=== PATIENT | male | born 1960 | race Caucasian/White ===

== ENCOUNTER 2018-12-16 08:40 | Emergency (ER) | payer MEDICAID ==
[~2018-12-16] VITALS: Ht 172.7 cm; Wt 86.2 kg
[~2018-12-16 08:40] MED LIST: ATEN50TA PO
[2018-12-16] MEDS ORDERED: cloNIDine HCL 0.1 MG TAB PO ONE (09:00)
[2018-12-16 09:48] VITALS: BP 191/95
== END 2018-12-16 10:51 | disposition home or self-care (01) ==
LOC: ER 08:40
DX: S39.012A Strain of muscle, fascia and tendon of lower back, initial encounter (principal); S46.912A Strain of unspecified muscle, fascia and tendon at shoulder and upper arm level, left arm, initial encounter; F17.210 Nicotine dependence, cigarettes, uncomplicated; Z79.899 Other long term (current) drug therapy; X50.0XXA Overexertion from strenuous movement or load, initial encounter; Y93.89 Activity, other specified; Y99.8 Other external cause status; Y92.89 Other specified places as the place of occurrence of the external cause
CPT/HCPCS: 72100; 73030

== ENCOUNTER 2019-10-03 20:06 | Emergency (ER) | payer MEDICAID ==
[~2019-10-03] VITALS: Ht 172.7 cm; Wt 86.2 kg
[2019-10-03 20:15] VITALS: BP 169/106
[2019-10-03] MEDS ORDERED: cloNIDine HCL 0.1 MG TAB ONE (20:44)
[2019-10-03] MEDS ORDERED: cloNIDine HCL 0.1 MG TAB PO ONE (20:45)
[2019-10-03 23:00] LABS: Basophils # (auto) 0.1 uL; Eosinophils # (auto) 0.4 uL; Eosinophils % (auto) 3.6 % (0.0-7.0); Hematocrit 47.9 % (41.0-53.0); Hemoglobin 16.9 g/dL (13.5-17.5); Lymphocytes % (auto) 28.7 % (10.0-50.0); Mean Corpuscular Hemoglobin 31.7 pg (28.0-32.0); Mean Corpuscular Hgb Conc. 35.3 g/dL (32.0-36.0); Mean Corpuscular Volume 89.7 fL (80.0-100.0); Monocytes # (auto) 0.8 uL; Monocytes % (auto) 7.4 % (0.0-12.0); Neutrophils # (auto) 6.1 uL; Neutrophils % (auto) 59.3 % (37.0-80.0); Nucleated Red Blood Cells % 0.1 %; Platelet Count (auto) 231 10^3/uL (140-450); Red Blood Cells 5.34 10^6/uL (4.5-5.90); White Blood Cell 10.3 10^3/uL (4.4-10.8)
[2019-10-03 23:13] LABS: INR 1.02 (0.9-1.15); Partial Thromboplastin Time 28.5 sec (23.64-32.05)
[2019-10-03 23:17] LABS: Alanine Aminotransferase 23 U/L (16-61); Albumin 3.7 g/dL (3.4-5.0); Anion Gap 7 (5-15); Aspartate Aminotransferase 16 U/L (15-37); BUN/Creatinine Ratio 12.7; Blood Urea Nitrogen 15 mg/dL (7-18); Calcium 8.7 mg/dL (8.5-10.1); Carbon Dioxide 26 mmol/L (21-32); Chloride 109 mmol/L (98-107); GFR African American 82 mL/min; GFR Non-African American 67 mL/min; Glucose 96 mg/dL (74-106); Potassium 4.6 mmol/L (3.5-5.1); Sodium 142 mmol/L (136-145)
[2019-10-03 23:22] LABS: Alkaline Phosphatase 85 U/L (45-117); Bilirubin, Total 0.5 mg/dL (0.2-1.0); Total Protein 7.4 g/dL (6.4-8.2)
[2019-10-04] MEDS ORDERED: ONDANSETRON ODT 4 MG TAB PO ONE (01:15)
[2019-10-04] MEDS ORDERED: MORPHINE SULFATE 4 MG/ML SYR/VIAL IM ONE (01:15)
== END 2019-10-04 02:33 | disposition home or self-care (01) ==
LOC: ER 20:08
DX: R09.1 Pleurisy (principal); R07.89 Other chest pain
CPT/HCPCS: 36415; 71045; 80053; 83880; 84484; 85025; 85610; 85730; 93005; 96372; 99284; J2270; Q0162

== ENCOUNTER 2020-10-09 04:49 | Emergency (ER) | payer MEDICAID ==
[~2020-10-09] VITALS: Ht 172.7 cm; Wt 74.4 kg
[2020-10-09 04:49] VITALS: BP 166/97
[2020-10-09 05:25] LABS: Urine Bacteria NONE SEEN /hpf (None Seen); Urine Blood Negative /uL (Negative); Urine Hyaline Cast FEW /lpf (0 - 2); Urine WBC 4 /hpf (0 - 3)
[2020-10-09 08:58] LABS: Basophils # (auto) 0.1 10 ^3/uL (0-0.2); Basophils % (auto) 1.3 % (0.0-2.0); Eosinophils # (auto) 0.3 10 ^3/uL (0-0.8); Eosinophils % (auto) 4.4 % (0.0-7.0); Hematocrit 47.7 % (41.0-53.0); Hemoglobin 16.5 g/dL (13.5-17.5); Lymphocytes # (auto) 2.3 10 ^3/uL (0.4-5.4); Lymphocytes % (auto) 31.1 % (10.0-50.0); Mean Corpuscular Hemoglobin 30.9 pg (28.0-32.0); Mean Corpuscular Hgb Conc. 34.6 g/dL (32.0-36.0); Mean Corpuscular Volume 89.2 fL (80.0-100.0); Monocytes # (auto) 0.5 10 ^3/uL (0-1.3); Neutrophils # (auto) 4.1 10 ^3/uL (1.6-8.6); Neutrophils % (auto) 56.2 % (37.0-80.0); Nucleated Red Blood Cells % 0.3 %; Platelet Count (auto) 218 10^3/uL (140-450); Red Blood Cells 5.35 10^6/uL (4.5-5.90); Red Cell Distribution Width 13.1 % (11.8-14.3); White Blood Cell 7.3 10^3/uL (4.4-10.8)
[2020-10-09 09:16] LABS: Albumin 3.8 g/dL (3.4-5.0); Anion Gap 4 (5-15); Blood Urea Nitrogen 14 mg/dL (7-18); Calcium 8.6 mg/dL (8.5-10.1); Carbon Dioxide 28 mmol/L (21-32); Chloride 108 mmol/L (98-107); Glucose 90 mg/dL (74-106); Magnesium 2.2 mg/dL (1.6-2.6); Potassium 4.1 mmol/L (3.5-5.1); Sodium 140 mmol/L (136-145)
[2020-10-09 09:17] LABS: BUN/Creatinine Ratio 15.4; GFR African American 110 mL/min; GFR Non-African American 91 mL/min
[2020-10-09 09:25] LABS: Alanine Aminotransferase 25 U/L (16-61); Alkaline Phosphatase 97 U/L (45-117); Aspartate Aminotransferase 20 U/L (15-37); Bilirubin, Total 0.5 mg/dL (0.2-1.0); Total Protein 7.2 g/dL (6.4-8.2)
== END 2020-10-09 14:27 | disposition home or self-care (01) ==
LOC: ER 04:49
DX: R07.89 Other chest pain (principal); K59.00 Constipation, unspecified; K21.9 Gastro-esophageal reflux disease without esophagitis; F17.210 Nicotine dependence, cigarettes, uncomplicated; I10 Essential (primary) hypertension; J44.9 Chronic obstructive pulmonary disease, unspecified
CPT/HCPCS: 36415; 71250; 74176; 80053; 81001; 83735; 83880; 84443; 84484; 85025; 85379; 93005

== ENCOUNTER 2021-11-13 12:35 | Emergency (ER) | payer MEDICAID ==
[~2021-11-13] VITALS: Ht 172.7 cm; Wt 88.5 kg
[2021-11-13 13:18] VITALS: BP 167/98
[2021-11-13] MEDS ORDERED: IBUP800T27 PO (13:46)
== END 2021-11-13 13:49 | disposition home or self-care (01) ==
LOC: ER 12:35
DX: S90.32XA Contusion of left foot, initial encounter (principal); J44.9 Chronic obstructive pulmonary disease, unspecified; I10 Essential (primary) hypertension; F17.210 Nicotine dependence, cigarettes, uncomplicated; W23.0XXA Caught, crushed, jammed, or pinched between moving objects, initial encounter; Y93.79 Activity, other specified sports and athletics; Y92.89 Other specified places as the place of occurrence of the external cause; Y99.8 Other external cause status
CPT/HCPCS: 73630

== ENCOUNTER 2022-10-19 19:23 | Emergency (ER) | payer MEDICAID ==
[~2022-10-19] VITALS: Ht 172.7 cm; Wt 86.4 kg
[~2022-10-19 19:23] MED LIST changes: +IBUP800T27 PO
[2022-10-19 19:30] VITALS: BP 144/97
[2022-10-19 19:58] LABS: Basophils # (auto) 0.1 10 ^3/uL (0-0.2); Eosinophils # (auto) 0.3 10 ^3/uL (0-0.8); Eosinophils % (auto) 2.9 % (0.0-7.0); Hematocrit 45.4 % (41.0-53.0); Hemoglobin 16.1 g/dL (13.5-17.5); Lymphocytes # (auto) 2.3 10 ^3/uL (0.4-5.4); Lymphocytes % (auto) 22.6 % (10.0-50.0); Mean Corpuscular Hemoglobin 31.4 pg (28.0-32.0); Mean Corpuscular Hgb Conc. 35.5 g/dL (32.0-36.0); Mean Corpuscular Volume 88.3 fL (80.0-100.0); Monocytes # (auto) 0.6 10 ^3/uL (0-1.3); Monocytes % (auto) 5.7 % (0.0-12.0); Neutrophils # (auto) 6.8 10 ^3/uL (1.6-8.6); Neutrophils % (auto) 67.8 % (37.0-80.0); Nucleated Red Blood Cells % 0.1 %; Red Blood Cells 5.14 10^6/uL (4.5-5.90)
[2022-10-19 20:15] LABS: Albumin 3.7 g/dL (3.4-5.0); Calcium 9.1 mg/dL (8.5-10.1); Magnesium 2.3 mg/dL (1.6-2.6)
[2022-10-19 20:17] LABS: BUN/Creatinine Ratio 13.3
[2022-10-19 20:20] LABS: Bilirubin, Total 0.4 mg/dL (0.2-1.0); Total Protein 6.6 g/dL (6.4-8.2)
[2022-10-19 20:22] LABS: INR 0.96 (0.9-1.15); Partial Thromboplastin Time 28.1 sec (24.6-33.4)
[2022-10-20] MEDS ORDERED: LEVO-28 PO (16:23)
[2022-10-20] MEDS ORDERED: PRED20TA2 PO (16:23)
== END 2022-10-20 03:06 | disposition left against medical advice (07) ==
LOC: ER 19:25
DX: R07.89 Other chest pain (principal); N17.9 Acute kidney failure, unspecified; J44.9 Chronic obstructive pulmonary disease, unspecified; I10 Essential (primary) hypertension; F17.210 Nicotine dependence, cigarettes, uncomplicated
CPT/HCPCS: 36415; 71045; 80053; 83735; 83880; 84484; 85025; 85610; 85730; 93005

== ENCOUNTER 2022-10-20 14:43 | Emergency (ER) | payer MEDICAID ==
[~2022-10-20] VITALS: Ht 172.7 cm; Wt 86.1 kg
[2022-10-20 14:59] VITALS: BP 161/104
[2022-10-20] MEDS ORDERED: ASPirin 325 MG TAB PO ONE (15:00)
[2022-10-20 15:15] LABS: Basophils # (auto) 0.1 10 ^3/uL (0-0.2); Eosinophils # (auto) 0.4 10 ^3/uL (0-0.8); Eosinophils % (auto) 3.1 % (0.0-7.0); Hemoglobin 16.5 g/dL (13.5-17.5); Lymphocytes # (auto) 2.4 10 ^3/uL (0.4-5.4); Lymphocytes % (auto) 18.9 % (10.0-50.0); Mean Corpuscular Hemoglobin 31.1 pg (28.0-32.0); Mean Corpuscular Hgb Conc. 35.1 g/dL (32.0-36.0); Mean Corpuscular Volume 88.6 fL (80.0-100.0); Monocytes # (auto) 0.7 10 ^3/uL (0-1.3); Monocytes % (auto) 5.8 % (0.0-12.0); Neutrophils % (auto) 71.2 % (37.0-80.0); Nucleated Red Blood Cells % 0.1 %; Red Cell Distribution Width 13.1 % (11.8-14.3); White Blood Cell 12.7 10^3/uL (4.4-10.8)
[2022-10-20 15:32] LABS: Albumin 3.6 g/dL (3.4-5.0); BUN/Creatinine Ratio 15.4; Calcium 8.6 mg/dL (8.5-10.1); Potassium 4.1 mmol/L (3.5-5.1)
[2022-10-20 15:34] LABS: Bilirubin, Total 0.4 mg/dL (0.2-1.0); Total Protein 6.6 g/dL (6.4-8.2)
[2022-10-20] MEDS ORDERED: PRED20TA2 PO (16:23)
[2022-10-20] MEDS ORDERED: LEVO-28 PO (16:23)
[2022-10-20] MEDS ORDERED: cloNIDine HCL 0.1 MG TAB PO ONE (16:30)
== END 2022-10-20 18:28 | disposition left against medical advice (07) ==
LOC: ER 14:43
DX: J20.9 Acute bronchitis, unspecified (principal); R07.89 Other chest pain; I10 Essential (primary) hypertension; J44.9 Chronic obstructive pulmonary disease, unspecified; F17.210 Nicotine dependence, cigarettes, uncomplicated
CPT/HCPCS: 36415; 71045; 80053; 84484; 85025; 85379; 93005

== ENCOUNTER 2022-12-04 19:21 | Inpatient (IN) | payer MEDICAID ==
[~2022-12-04] VITALS: Ht 172.7 cm; Wt 79.7 kg
[~2022-12-04 19:21] MED LIST changes: +LEVO-28 PO; +PRED20TA2 PO
[2022-12-04] MEDS ORDERED: ONDANSETRON HCL 4 MG/2 ML VIAL IV ONE (20:15)
[2022-12-04] MEDS ORDERED: HYDROmorphone HCL 2 MG/ML VL/or syr IV ONE (20:15)
[2022-12-04 20:50] LABS: Basophils # (auto) 0.1 10 ^3/uL (0-0.2); Basophils % (auto) 0.8 % (0.0-2.0); Eosinophils # (auto) 0.4 10 ^3/uL (0-0.8); Eosinophils % (auto) 3.5 % (0.0-7.0); Hematocrit 47.7 % (41.0-53.0); Hemoglobin 16.5 g/dL (13.5-17.5); Lymphocytes # (auto) 2.8 10 ^3/uL (0.4-5.4); Lymphocytes % (auto) 28.1 % (10.0-50.0); Mean Corpuscular Hemoglobin 30.5 pg (28.0-32.0); Mean Corpuscular Hgb Conc. 34.5 g/dL (32.0-36.0); Mean Corpuscular Volume 88.2 fL (80.0-100.0); Monocytes # (auto) 0.7 10 ^3/uL (0-1.3); Monocytes % (auto) 6.6 % (0.0-12.0); Neutrophils # (auto) 6.2 10 ^3/uL (1.6-8.6); Red Cell Distribution Width 12.9 % (11.8-14.3); White Blood Cell 10.1 10^3/uL (4.4-10.8)
[2022-12-04 21:04] LABS: Urine Bacteria FEW /hpf (None Seen); Urine Blood 3+ /uL (Negative); Urine Specific Gravity 1.023 (1.001-1.035); Urine WBC 58 /hpf (0 - 3)
[2022-12-04 21:06] LABS: Albumin 3.6 g/dL (3.4-5.0); BUN/Creatinine Ratio 16.5; Calcium 8.7 mg/dL (8.5-10.1); Potassium 4.2 mmol/L (3.5-5.1)
[2022-12-04 21:09] LABS: Bilirubin, Total 0.3 mg/dL (0.2-1.0)
[2022-12-04] MEDS ORDERED: IOHEXOL 300 MG/ML 100ML BOTTLE IJ ONE (22:18)
[2022-12-05] MEDS ORDERED: levoFLOXacin 250 MG TAB PO ONE (01:00)
[2022-12-05] MEDS ORDERED: CEFTRIAXONE SODIUM 2 GM in D5W 5% 50 ML IV ONE (03:30)
[2022-12-05] MEDS ORDERED: DOCUSATE SOD 100 MG CAP PO PRN (03:45)
[2022-12-05] MEDS ORDERED: ONDANSETRON HCL 4 MG/2 ML VIAL IV PRN (03:45)
[2022-12-05] MEDS ORDERED: ACETAMINOPHEN 325 MG TAB PO PRN (03:45)
[2022-12-05] MEDS ORDERED: MORPHINE SULFATE INJ 2 MG/ml SYRG IV PRN (04:45)
[2022-12-05] MEDS ORDERED: NITROGLYCERIN 0.4 MG SL TAB SL PRN (04:45)
[2022-12-05] MEDS ORDERED: cefTRIAXone 1GM/50ML D5W 50 ML IV ONE ×2 (04:58→14:15)
[2022-12-05 04:59] LABS: Basophils # (auto) 0.1 10 ^3/uL (0-0.2); Basophils % (auto) 0.9 % (0.0-2.0); Eosinophils # (auto) 0.3 10 ^3/uL (0-0.8); Eosinophils % (auto) 3.9 % (0.0-7.0); Hematocrit 45.4 % (41.0-53.0); Hemoglobin 15.7 g/dL (13.5-17.5); Lymphocytes # (auto) 2.5 10 ^3/uL (0.4-5.4); Lymphocytes % (auto) 27.9 % (10.0-50.0); Mean Corpuscular Hemoglobin 30.8 pg (28.0-32.0); Mean Corpuscular Hgb Conc. 34.6 g/dL (32.0-36.0); Monocytes # (auto) 0.7 10 ^3/uL (0-1.3); Monocytes % (auto) 7.8 % (0.0-12.0); Neutrophils # (auto) 5.3 10 ^3/uL (1.6-8.6); Neutrophils % (auto) 59.5 % (37.0-80.0); Nucleated Red Blood Cells % 0.1 %; White Blood Cell 8.8 10^3/uL (4.4-10.8)
[2022-12-05 05:18] LABS: Potassium 4.7 mmol/L (3.5-5.1)
[2022-12-05 05:21] LABS: Albumin 3.4 g/dL (3.4-5.0); Calcium 8.4 mg/dL (8.5-10.1)
[2022-12-05 05:24] LABS: Bilirubin, Total 0.3 mg/dL (0.2-1.0); Total Protein 6.7 g/dL (6.4-8.2)
[2022-12-05] MEDS: SODIUM CHLOR 0.9% PF (SALINE LOCK) 10ML VIAL/SYR IV SCH ×3 (05:40→22:00)
[2022-12-05] MEDS: HYDROcodone-ACET 5/325MG TAB PO PRN ×3 (06:59→13:31)
[2022-12-05] MEDS ORDERED: cefTRIAXone 1GM/50ML D5W 50 ML IV SCH (09:00)
[2022-12-05] MEDS ORDERED: HYDROmorphone HCL 2 MG/ML VL/or syr IV ONE ×2 (09:30)
[2022-12-05] MEDS ORDERED: levoFLOXacin 500MG 100 ML IV SCH ×2 (10:00)
[2022-12-05] MEDS: SODIUM CHLORIDE 0.9% 1,000 ML IV SCH (14:55)
[2022-12-05 15:10] VITALS: BP 138/87
[2022-12-05] MEDS ORDERED: ATOR20TA50 PO (15:40)
[2022-12-05] MEDS ORDERED: FUR20T PO (15:40)
[2022-12-05] MEDS ORDERED: TAMS0.4C36 PO (15:40)
[2022-12-05] MEDS ORDERED: OXYC7.5T88 PO (15:40)
[2022-12-05] MEDS ORDERED: PANT40T PO (15:40)
[2022-12-05] MEDS ORDERED: LOSA-69 PO (15:40)
[2022-12-05] MEDS: TAMSULOSIN HYDROCHLORIDE 0.4 MG CAP PO SCH ×2 (19:00→22:50)
[2022-12-05 19:20] VITALS: BP 160/95
[2022-12-05 22:00] VITALS: BP 157/88
[2022-12-06] MEDS: SODIUM CHLORIDE 0.9% 1,000 ML IV SCH ×2 (03:50→17:30)
[2022-12-06 05:00] VITALS: BP 162/82
[2022-12-06] MEDS: SODIUM CHLOR 0.9% PF (SALINE LOCK) 10ML VIAL/SYR IV SCH ×3 (06:00→22:00)
[2022-12-06 06:01] LABS: Basophils # (auto) 0.1 10 ^3/uL (0-0.2); Basophils % (auto) 0.8 % (0.0-2.0); Eosinophils # (auto) 0.3 10 ^3/uL (0-0.8); Eosinophils % (auto) 4.3 % (0.0-7.0); Hemoglobin 15.4 g/dL (13.5-17.5); Lymphocytes # (auto) 1.6 10 ^3/uL (0.4-5.4); Lymphocytes % (auto) 21.5 % (10.0-50.0); Mean Corpuscular Hemoglobin 30.6 pg (28.0-32.0); Mean Corpuscular Hgb Conc. 34.2 g/dL (32.0-36.0); Mean Corpuscular Volume 89.5 fL (80.0-100.0); Monocytes # (auto) 0.5 10 ^3/uL (0-1.3); Monocytes % (auto) 6.7 % (0.0-12.0); Neutrophils % (auto) 66.7 % (37.0-80.0); Red Blood Cells 5.02 10^6/uL (4.5-5.90); Red Cell Distribution Width 12.6 % (11.8-14.3); White Blood Cell 7.5 10^3/uL (4.4-10.8)
[2022-12-06 06:45] LABS: Albumin 3.4 g/dL (3.4-5.0); Calcium 8.9 mg/dL (8.5-10.1); Potassium 4.8 mmol/L (3.5-5.1)
[2022-12-06 06:50] LABS: Bilirubin, Total 0.4 mg/dL (0.2-1.0); Total Protein 6.5 g/dL (6.4-8.2)
[2022-12-06 09:00] VITALS: BP 121/82
[2022-12-06] MEDS: cefTRIAXone 1GM/50ML D5W 50 ML IV SCH (10:00)
[2022-12-06] MEDS: HYDROmorphone HCL 2 MG/ML VL/or syr IV PRN ×3 (11:19→20:15)
[2022-12-06] MEDS ORDERED: HYDROmorphone HCL 2 MG/ML VL/or syr IV ONE (12:15)
[2022-12-06] MEDS ORDERED: LIDOCAINE HCL 2% TOP JELLY 5ML TOP ONE (12:30)
[2022-12-06 13:00] VITALS: BP 149/95
[2022-12-06] MEDS ORDERED: TAMSULOSIN HYDROCHLORIDE 0.4 MG CAP PO ONE (14:00)
[2022-12-06 17:00] VITALS: BP 176/83
[2022-12-06] MEDS: PHENAZOPYRIDINE HCL 100 MG TAB PO SCH (18:00)
[2022-12-06] MEDS: hydrALAZINE HCL 20 MG/ML VL IV PRN (20:42)
[2022-12-06 22:00] VITALS: BP 163/85
[2022-12-07] MEDS: HYDROmorphone HCL 2 MG/ML VL/or syr IV PRN ×4 (03:25→20:22)
[2022-12-07 05:00] VITALS: BP 135/70
[2022-12-07] MEDS: SODIUM CHLOR 0.9% PF (SALINE LOCK) 10ML VIAL/SYR IV SCH ×3 (05:14→21:02)
[2022-12-07] MEDS: SODIUM CHLORIDE 0.9% 1,000 ML IV SCH (05:39)
[2022-12-07] MEDS: PHENAZOPYRIDINE HCL 100 MG TAB PO SCH ×3 (09:02→17:15)
[2022-12-07] MEDS: cefTRIAXone 1GM/50ML D5W 50 ML IV SCH (09:03)
[2022-12-07 09:17] VITALS: BP 162/97
[2022-12-07] MEDS: hydrALAZINE HCL 20 MG/ML VL IV PRN ×2 (10:14→16:24)
[2022-12-07 13:00] VITALS: BP 168/94
[2022-12-07] MEDS ORDERED: NICOTINE 21MG/24 HR TOPICAL PATCH TD ONE (15:45)
[2022-12-07 16:43] VITALS: BP 164/108
[2022-12-08] MEDS: HYDROmorphone HCL 2 MG/ML VL/or syr IV PRN ×5 (00:38→23:24)
[2022-12-08] MEDS: SODIUM CHLOR 0.9% PF (SALINE LOCK) 10ML VIAL/SYR IV SCH ×3 (05:05→21:14)
[2022-12-08 05:45] VITALS: BP 137/93
[2022-12-08] MEDS: hydrALAZINE HCL 20 MG/ML VL IV PRN (07:59)
[2022-12-08] MEDS: NICOTINE 21MG/24 HR TOPICAL PATCH TD SCH (08:52)
[2022-12-08] MEDS: PHENAZOPYRIDINE HCL 100 MG TAB PO SCH ×2 (08:53→12:00)
[2022-12-08] MEDS: cefTRIAXone 1GM/50ML D5W 50 ML IV SCH (08:53)
[2022-12-08 09:00] VITALS: BP 182/100
[2022-12-08 13:00] VITALS: BP 151/88
[2022-12-08] MEDS ORDERED: METOPROLOL TARTRATE 50 MG TAB PO ONE (13:00)
[2022-12-08 17:00] VITALS: BP 151/103
[2022-12-08] MEDS: oxyCODONE HCL 5MG TAB PO PRN (20:27)
[2022-12-08] MEDS: OXYBUTYNIN CHL 5 MG TAB PO SCH (21:15)
[2022-12-08] MEDS: METOPROLOL TARTRATE 50 MG TAB PO SCH (21:16)
[2022-12-08 22:00] VITALS: BP_SYST 144; BP_SYST 151; BP_DIAS 79; BP_DIAS 84
[2022-12-09 05:00] VITALS: BP 135/82
[2022-12-09] MEDS: SODIUM CHLOR 0.9% PF (SALINE LOCK) 10ML VIAL/SYR IV SCH ×3 (05:45→21:22)
[2022-12-09] MEDS: HYDROmorphone HCL 2 MG/ML VL/or syr IV PRN ×3 (05:46→20:23)
[2022-12-09 09:00] VITALS: BP 141/88
[2022-12-09] MEDS: cefTRIAXone 1GM/50ML D5W 50 ML IV SCH (10:03)
[2022-12-09] MEDS: NICOTINE 21MG/24 HR TOPICAL PATCH TD SCH (10:03)
[2022-12-09] MEDS: OXYBUTYNIN CHL 5 MG TAB PO SCH ×2 (10:03→21:33)
[2022-12-09] MEDS: METOPROLOL TARTRATE 50 MG TAB PO SCH ×2 (10:04→21:34)
[2022-12-09] MEDS: oxyCODONE HCL 5MG TAB PO PRN (10:05)
[2022-12-09 13:00] VITALS: BP 108/76
[2022-12-09 16:42] VITALS: BP 139/84
[2022-12-09 22:00] VITALS: BP 124/91
[2022-12-10 05:00] VITALS: BP 146/79
[2022-12-10] MEDS: SODIUM CHLOR 0.9% PF (SALINE LOCK) 10ML VIAL/SYR IV SCH ×3 (06:06→22:22)
[2022-12-10] MEDS: HYDROmorphone HCL 2 MG/ML VL/or syr IV PRN ×3 (06:51→23:29)
[2022-12-10 08:50] VITALS: BP 105/72
[2022-12-10 08:51] VITALS: BP 117/78
[2022-12-10] MEDS: OXYBUTYNIN CHL 5 MG TAB PO SCH ×2 (09:38→23:38)
[2022-12-10] MEDS: cefTRIAXone 1GM/50ML D5W 50 ML IV SCH (09:39)
[2022-12-10] MEDS: METOPROLOL TARTRATE 50 MG TAB PO SCH ×2 (09:39→22:43)
[2022-12-10] MEDS: NICOTINE 21MG/24 HR TOPICAL PATCH TD SCH (09:39)
[2022-12-10 11:23] LABS: INR 0.97 (0.9-1.15); Partial Thromboplastin Time 29.3 sec (24.6-33.4)
[2022-12-10] MEDS ORDERED: PROPOFOL 10 MG/ML 20 ML IV ONE (13:51)
[2022-12-10] MEDS ORDERED: ONDANSETRON HCL 4 MG/2 ML VIAL ONE (13:52)
[2022-12-10] MEDS ORDERED: GLYCOPYRROLATE 0.2 MG/ML 1ML VIAL ONE (13:52)
[2022-12-10] MEDS ORDERED: DexAMETHasone SOD PHOS 10MG/1ML VIAL INJ ONE (13:52)
[2022-12-10] MEDS ORDERED: LIDOCAINE 2% (LOCAL ANESTH.) PF 5ml SDV ONE (13:52)
[2022-12-10] MEDS ORDERED: ePHEDrine SULFATE 50 MG/ML AMP ONE (14:02)
[2022-12-10] MEDS ORDERED: KETAMINE HCL 10 ML ONE (14:06)
[2022-12-10] MEDS ORDERED: fentaNYL CITRATE 100 MCG/2 ML VL ONE ×2 (14:07→15:24)
[2022-12-10] MEDS ORDERED: HYDROmorphone HCL 2 MG/ML VL/or syr IV PRN (15:15)
[2022-12-10] MEDS ORDERED: ONDANSETRON HCL 4 MG/2 ML VIAL IV PRN (15:15)
[2022-12-10] MEDS ORDERED: NALOXONE HCL 0.4 MG/ML VIAL IV PRN (15:15)
[2022-12-10] MEDS ORDERED: ePHEDrine SULFATE 50 MG/ML AMP IV PRN (15:15)
[2022-12-10] MEDS ORDERED: fentaNYL CITRATE 100 MCG/2 ML VL IV PRN (15:15)
[2022-12-10] MEDS ORDERED: LABETALOL HCL 5 MG/ML 4ML SYRINGE IV PRN (15:15)
[2022-12-10] MEDS ORDERED: FLUMAZENIL 0.1 MG/ML INJ 10ML MDV IV PRN (15:15)
[2022-12-10] MEDS ORDERED: hydrALAZINE HCL 20 MG/ML VL IV PRN (15:15)
[2022-12-10] MEDS ORDERED: HYDROmorphone HCL 2 MG/ML VL/or syr IV ONE ×7 (15:15→19:15)
[2022-12-10] MEDS ORDERED: MIDAZOLAM HCL 2MG/2ML 2ml VIAL (1mg/ml) ONE (15:24)
[2022-12-10] MEDS: METHOCARBAMOL 500 MG TAB PO PRN ×2 (16:40→22:43)
[2022-12-10] MEDS: HYDROcodone-ACET 7.5/325MG TAB PO PRN (18:03)
[2022-12-10 22:00] VITALS: BP 118/76
[2022-12-11] MEDS: HYDROmorphone HCL 2 MG/ML VL/or syr IV PRN (04:37)
[2022-12-11 05:00] VITALS: BP 121/72
[2022-12-11] MEDS: SODIUM CHLOR 0.9% PF (SALINE LOCK) 10ML VIAL/SYR IV SCH ×2 (05:40→13:48)
[2022-12-11] MEDS: OXYBUTYNIN CHL 5 MG TAB PO SCH ×2 (05:56→12:00)
[2022-12-11 08:57] VITALS: BP 118/82
[2022-12-11] MEDS: cefTRIAXone 1GM/50ML D5W 50 ML IV SCH (09:27)
[2022-12-11] MEDS: METOPROLOL TARTRATE 50 MG TAB PO SCH (09:28)
[2022-12-11] MEDS: NICOTINE 21MG/24 HR TOPICAL PATCH TD SCH (09:43)
[2022-12-11] MEDS ORDERED: CIPR-173 PO (11:05)
[2022-12-11] MEDS: HYDROcodone-ACET 7.5/325MG TAB PO PRN (12:20)
[2022-12-11 12:55] VITALS: BP 118/82
[2022-12-11 13:00] VITALS: BP 122/65
== END 2022-12-11 16:14 | disposition home or self-care (01) | DRG 446 ==
LOC: ER 19:21 → OVERFLOW 12-05 04:46 → EAST 12-05 14:42 → WEST WING 12-05 18:59
PROVIDERS: ADMIT Nurse Practitioner Family; ATTEND Family Medicine
PROC: 0TBB8ZZ Excision of Bladder, Via Natural or Artificial Opening Endoscopic (ICD-10-PCS; principal; 2022-12-10 13:38)
DX: D49.4 Neoplasm of unspecified behavior of bladder (principal); F17.210 Nicotine dependence, cigarettes, uncomplicated; I10 Essential (primary) hypertension; J44.9 Chronic obstructive pulmonary disease, unspecified; Z82.49 Family history of ischemic heart disease and other diseases of the circulatory system; Z20.822 Contact with and (suspected) exposure to COVID-19; N39.0 Urinary tract infection, site not specified
CPT/HCPCS: 36415; 71045; 74177; 80053; 81001; 83605; 83690; 84154; 85025; 85610; 85730; 87040; 87426; 96365; 96366; 96367; 96375; 96376; G0378; J0696; J1100; J1956; J2001; J2250; J2405; J2704; J7060

== ENCOUNTER → 2023-02-18 | Outpatient (CLI) | payer MEDICAID ==
[~2023-02-18] MED LIST changes: +ATOR20TA50 PO; +CIPR-173 PO; +FUR20T PO; +LOSA-69 PO; +OXYC7.5T88 PO; +PANT40T PO; +TAMS0.4C36 PO
[2023-02-18 08:29] LABS: Cholesterol 155 mg/dL (< 200); HDL Cholesterol 58 mg/dL (40-59); LDL Cholesterol 83 mg/dL (< 100); Triglycerides 116 mg/dL (< 150)
== END | disposition home or self-care (01) ==
LOC: LAB 07:22
PROVIDERS: ATTEND Internal Medicine
DX: Z12.11 Encounter for screening for malignant neoplasm of colon (principal); I10 Essential (primary) hypertension
CPT/HCPCS: 36415; 80061

== ENCOUNTER → 2023-03-01 | Outpatient (CLI) | payer MEDICAID | END | disposition home or self-care (01) | LOC: LAB 12:50 | PROVIDERS: ATTEND Internal Medicine | DX: Z12.11 Encounter for screening for malignant neoplasm of colon (principal); I10 Essential (primary) hypertension | CPT/HCPCS: 82270 ==

== ENCOUNTER 2023-06-03 07:47 | Day surgery (SDC) | payer MEDICAID ==
[2023-06-01 12:41] LABS: Basophils # (auto) 0.1 10 ^3/uL (0-0.2); Basophils % (auto) 1.2 % (0.0-2.0); Eosinophils # (auto) 0.3 10 ^3/uL (0-0.8); Eosinophils % (auto) 3.5 % (0.0-7.0); Hematocrit 46.5 % (41.0-53.0); Lymphocytes # (auto) 2.1 10 ^3/uL (0.4-5.4); Lymphocytes % (auto) 23.9 % (10.0-50.0); Mean Corpuscular Hemoglobin 30.5 pg (28.0-32.0); Mean Corpuscular Hgb Conc. 34.4 g/dL (32.0-36.0); Mean Corpuscular Volume 88.7 fL (80.0-100.0); Monocytes # (auto) 0.6 10 ^3/uL (0-1.3); Monocytes % (auto) 6.8 % (0.0-12.0); Neutrophils # (auto) 5.8 10 ^3/uL (1.6-8.6); Neutrophils % (auto) 64.6 % (37.0-80.0); Nucleated Red Blood Cells % 0.1 %; Red Blood Cells 5.24 10^6/uL (4.5-5.90); Red Cell Distribution Width 13.4 % (11.8-14.3)
[2023-06-01 12:46] LABS: INR 1.01 (0.9-1.15); Partial Thromboplastin Time 28.3 SEC (24.5-34.5); Prothrombin Time 10.6 sec (9.3-11.8)
[2023-06-01 13:21] LABS: Urine Bacteria NONE SEEN /hpf (None Seen); Urine Blood Negative /uL (Negative); Urine Clarity Clear (Clear); Urine Color Yellow (Yellow); Urine Protein, UAD Negative (Negative); Urine Specific Gravity 1.022 (1.001-1.035); Urine Urobilinogen Normal (Negative); Urine WBC 1 /hpf (0 - 3); Urine pH 6.5 (5.0-8.0)
[2023-06-01 14:17] LABS: Potassium 4.4 mmol/L (3.5-5.1)
[2023-06-01 14:29] LABS: Albumin 3.6 g/dL (3.4-5.0); BUN/Creatinine Ratio 14.2 (10.0-20.0); Bilirubin, Total 0.3 mg/dL (0.2-1.0); Calcium 8.5 mg/dL (8.5-10.1); Total Protein 6.9 g/dL (6.4-8.2)
[~2023-06-03] VITALS: Ht 172.7 cm; Wt 79.4 kg
[~2023-06-03 07:47] MED LIST changes: +ASPI81CH59 PO; -ATEN50TA PO; -CIPR-173 PO; +FAMO20TA30 PO; -FUR20T PO; -IBUP800T27 PO; -LEVO-28 PO; -LOSA-69 PO; +LOSA50TA46 PO; -PANT40T PO; -PRED20TA2 PO; -TAMS0.4C36 PO
[2023-06-03] MEDS ORDERED: CIPROFLOXACIN 400MG/200ML 200 ML IV ONE (09:43)
[2023-06-03] MEDS ORDERED: DexAMETHasone SOD PHOS 10MG/1ML VIAL INJ ONE (09:47)
[2023-06-03] MEDS ORDERED: LIDOCAINE 2% (LOCAL ANESTH.) PF 5ml SDV ONE (09:47)
[2023-06-03] MEDS ORDERED: PROPOFOL 10 MG/ML 20 ML IV ONE (09:47)
[2023-06-03] MEDS ORDERED: GLYCOPYRROLATE 0.2 MG/ML 1ML VIAL ONE (09:47)
[2023-06-03] MEDS ORDERED: ONDANSETRON HCL 4 MG/2 ML VIAL ONE (09:47)
[2023-06-03] MEDS ORDERED: fentaNYL CITRATE 100 MCG/2 ML VL ONE (09:51)
[2023-06-03 10:34] VITALS: TEMP 97.7; O2SAT 100
[2023-06-03] MEDS: HYDROmorphone HCL 2 MG/ML VL/or syr IV PRN ×2 (11:28→11:39)
[2023-06-03] MEDS ORDERED: ONDANSETRON HCL 4 MG/2 ML VIAL IV PRN (11:30)
[2023-06-03] MEDS ORDERED: hydrALAZINE HCL 20 MG/ML VL IV PRN (11:30)
[2023-06-03] MEDS ORDERED: oxyCODONE HCL 5MG TAB PO PRN (11:30)
[2023-06-03] MEDS ORDERED: fentaNYL CITRATE 100 MCG/2 ML VL IV PRN (11:30)
[2023-06-03] MEDS ORDERED: ePHEDrine SULFATE 50 MG/ML AMP IV PRN (11:30)
[2023-06-03] MEDS ORDERED: FLUMAZENIL 0.1 MG/ML INJ 10ML MDV IV PRN (11:30)
[2023-06-03] MEDS ORDERED: LABETALOL HCL 5 MG/ML 4ML SYRINGE IV PRN (11:30)
[2023-06-03] MEDS ORDERED: NALOXONE HCL 0.4 MG/ML VIAL IV PRN (11:30)
[2023-06-03 11:55] VITALS: BP 172/95; PULSE 57; RESP 12; O2SAT 100
== END 2023-06-03 12:03 | disposition home or self-care (01) ==
LOC: SUR 07:47
PROVIDERS: ATTEND Urology
DX: D49.4 Neoplasm of unspecified behavior of bladder (principal)
CPT/HCPCS: 36415; 52224; 80053; 81001; 85025; 85610; 85730; 87086; J0744; J1100; J1170; J2001; J2405; J2704

== ENCOUNTER → 2023-06-22 | Emergency (ER) | payer MEDICAID ==
[~2023-06-22] VITALS: Ht 172.7 cm; Wt 81.6 kg
[2023-06-22 17:07] VITALS: BP 113/86; RESP 16; O2SAT 100
[2023-06-22 17:33] LABS: Basophils # (auto) 0.1 10 ^3/uL (0-0.2); Basophils % (auto) 0.9 % (0.0-2.0); Eosinophils # (auto) 0.2 10 ^3/uL (0-0.8); Eosinophils % (auto) 2.5 % (0.0-7.0); Hematocrit 45.1 % (41.0-53.0); Hemoglobin 15.7 g/dL (13.5-17.5); Lymphocytes # (auto) 0.6 10 ^3/uL (0.4-5.4); Lymphocytes % (auto) 9.8 % (10.0-50.0); Mean Corpuscular Hemoglobin 30.5 pg (28.0-32.0); Mean Corpuscular Hgb Conc. 34.8 g/dL (32.0-36.0); Mean Corpuscular Volume 87.6 fL (80.0-100.0); Monocytes # (auto) 0.7 10 ^3/uL (0-1.3); Monocytes % (auto) 10.2 % (0.0-12.0); Neutrophils # (auto) 4.9 10 ^3/uL (1.6-8.6); Neutrophils % (auto) 76.6 % (37.0-80.0); Red Blood Cells 5.15 10^6/uL (4.5-5.90); Red Cell Distribution Width 13.5 % (11.8-14.3); White Blood Cell 6.4 10^3/uL (4.4-10.8)
[2023-06-22 17:52] LABS: Alanine Aminotransferase 14 U/L (7-40); Albumin 4.1 g/dL (3.2-4.8); Alkaline Phosphatase 92 U/L (46-116); Anion Gap 6.7 (5-15); Aspartate Aminotransferase 11 U/L (13-40); BUN/Creatinine Ratio 13.7 (10.0-20.0); Bilirubin, Total 0.3 mg/dL (0.2-1.0); Blood Urea Nitrogen 17 mg/dL (9-23); Calcium 8.7 mg/dL (8.7-10.4); Carbon Dioxide 23.3 mmol/L (20-30); Chloride 109 mmol/L (98-107); Glucose 111 mg/dL (74-106); Potassium 3.7 mmol/L (3.5-5.1); Sodium 139 mmol/L (136-145); Total Protein 6.4 g/dL (5.7-8.2)
[2023-06-22 19:43] LABS: COVID19 ANTIGEN SOFIA FIA POSITIVE (NEGATIVE)
[2023-06-22 22:44] VITALS: PULSE 76
== END | disposition home or self-care (01) ==
LOC: ER 16:40
DX: U07.1 COVID-19 (principal); R07.89 Other chest pain; R50.9 Fever, unspecified; J44.9 Chronic obstructive pulmonary disease, unspecified; E78.5 Hyperlipidemia, unspecified; I10 Essential (primary) hypertension; F17.210 Nicotine dependence, cigarettes, uncomplicated; Z53.29 Procedure and treatment not carried out because of patient's decision for other reasons
CPT/HCPCS: 36415; 71045; 80053; 83880; 84484; 85025; 85379; 87426; 93005

== ENCOUNTER 2024-04-27 15:40 | Inpatient (IN) | payer MEDICAID ==
[~2024-04-27] VITALS: Ht 172.7 cm; Wt 83.7 kg
[~2024-04-27 15:40] MED LIST changes: +LOSA-534 PO; -LOSA50TA46 PO
[2024-04-27] MEDS: methylPREDNISolone SOD SUCC 125 MG/2 ML VL IV ONE (16:13)
[2024-04-27] MEDS: IPRATROPIUM BROM 0.5 MG/2.5ML INH SOL NEB ONE (16:15)
[2024-04-27] MEDS: ALBUTEROL SULF 2.5 MG/0.5ML(0.5%) NEB SOLN NEB ONE (16:15)
[2024-04-27 16:20] VITALS: PULSE 58; RESP 14; O2SAT 98
[2024-04-27] MEDS: ONDANSETRON HCL 4 MG/2 ML VIAL IV ONE ×2 (16:43→20:24)
[2024-04-27 16:45] LABS: Basophils # (auto) 0.1 10 ^3/uL (0-0.2); Basophils % (auto) 0.5 % (0.0-2.0); Eosinophils # (auto) 0.3 10 ^3/uL (0-0.8); Hematocrit 44.6 % (41.0-53.0); Hemoglobin 15.2 g/dL (13.5-17.5); Lymphocytes # (auto) 1.7 10 ^3/uL (0.4-5.4); Mean Corpuscular Hemoglobin 30.6 pg (28.0-32.0); Mean Corpuscular Hgb Conc. 34.2 g/dL (32.0-36.0); Mean Corpuscular Volume 89.4 fL (80.0-100.0); Monocytes # (auto) 1.1 10 ^3/uL (0-1.3); Monocytes % (auto) 8.4 % (0.0-12.0); Neutrophils % (auto) 76.1 % (37.0-80.0); Nucleated Red Blood Cells % 0.1 %; Red Blood Cells 4.98 10^6/uL (4.5-5.90); White Blood Cell 13.2 10^3/uL (4.4-10.8)
[2024-04-27] MEDS: MORPHINE SULFATE 4 MG/ML SYR/VIAL IV ONE ×2 (16:45→20:25)
[2024-04-27 17:00] LABS: Alanine Aminotransferase 51 U/L (7-40); Albumin 3.7 g/dL (3.2-4.8); Alkaline Phosphatase 302 U/L (46-116); Anion Gap 6 (5-15); Aspartate Aminotransferase 37 U/L (13-40); BUN/Creatinine Ratio 15.7 (10.0-20.0); Bilirubin, Total 0.5 mg/dL (0.2-1.0); Blood Urea Nitrogen 16 mg/dL (9-23); Calcium 9.4 mg/dL (8.5-10.1); Carbon Dioxide 26 mmol/L (20-30); Chloride 107 mmol/L (98-107); Glucose 125 mg/dL (74-106); Sodium 139 mmol/L (136-145)
[2024-04-27 17:01] LABS: Total Protein 5.7 g/dL (5.7-8.2)
[2024-04-27 20:00] VITALS: PULSE 66; RESP 12; O2SAT 97
[2024-04-27 20:20] LABS: Urine Bacteria None Seen /hpf (None Seen)
[2024-04-27] MEDS: FUROSEMIDE 40 MG/4 ML VIAL IV ONE (20:25)
[2024-04-27 20:31] LABS: Urine Blood Negative /uL (Negative); Urine Clarity Clear (Clear); Urine Color Light-Yellow (Yellow); Urine Protein, UAD Negative (Negative); Urine Specific Gravity 1.024 (1.001-1.035); Urine Urobilinogen Normal (Negative); Urine WBC 1 /hpf (0 - 3); Urine pH 5.5 (5.0-9.0)
[2024-04-27] MEDS: IOHEXOL 350 MG/ML 100ML IJ ONE (20:50)
[2024-04-27] MEDS ORDERED: DOCUSATE SOD 100 MG CAP PO PRN (21:00)
[2024-04-27] MEDS ORDERED: ONDANSETRON HCL 4 MG/2 ML VIAL IV PRN (21:00)
[2024-04-27] MEDS ORDERED: NITROGLYCERIN 0.4 MG SL TAB SL PRN (23:30)
[2024-04-27] MEDS ORDERED: MORPHINE SULFATE INJ 2 MG/ml SYRG IV PRN (23:30)
[2024-04-27] MEDS: FAMOTIDINE (10MG/ML) 2ML VL IV SCH (23:35)
[2024-04-27] MEDS: methylPREDNISolone SOD SUCC 40 MG/ML VL IV SCH (23:35)
[2024-04-27] MEDS: SODIUM CHLOR 0.9% PF (SALINE LOCK) 10ML VIAL/SYR IV SCH (23:35)
[2024-04-27] MEDS: ATORVASTATIN 20 MG TAB PO SCH (23:35)
[2024-04-28] VITALS (15 sets, daily range): BP systolic 138–157; BP diastolic 68–92; PULSE 54–77; RESP 18–20; TEMP 97.4–98.4; O2SAT 94–99
[2024-04-28] MEDS: HYDROcodone-ACET 5/325MG TAB PO PRN (02:16)
[2024-04-28 07:04] LABS: Alanine Aminotransferase 40 U/L (7-40); Albumin 3.8 g/dL (3.2-4.8); Alkaline Phosphatase 288 U/L (46-116); Anion Gap 8 (5-15); Aspartate Aminotransferase 24 U/L (13-40); BUN/Creatinine Ratio 9.2 (10.0-20.0); Bilirubin, Total 0.5 mg/dL (0.2-1.0); Blood Urea Nitrogen 11 mg/dL (9-23); Carbon Dioxide 25 mmol/L (20-30); Chloride 104 mmol/L (98-107); Glucose 163 mg/dL (74-106); Sodium 137 mmol/L (136-145); Total Protein 6.7 g/dL (5.7-8.2)
[2024-04-28] MEDS: FUROSEMIDE 40 MG/4 ML VIAL IV SCH (09:38)
[2024-04-28] MEDS: LOSARTAN POTASSIUM 50 MG TAB PO SCH (09:39)
[2024-04-28] MEDS: ASPirin 81 mg TAB PO SCH (09:39)
[2024-04-28 09:48] LABS: Hematocrit 43.2 % (41.0-53.0); Mean Corpuscular Hemoglobin 30.9 pg (28.0-32.0); Mean Corpuscular Hgb Conc. 34.6 g/dL (32.0-36.0); Mean Corpuscular Volume 89.3 fL (80.0-100.0); Red Blood Cells 4.84 10^6/uL (4.5-5.90); Red Cell Distribution Width 13.2 % (11.8-14.3); White Blood Cell 14.4 10^3/uL (4.4-10.8)
[2024-04-28 09:49] LABS: Band Neutrophils % (manual) 0; Basophils % (manual) 0 (0.0-2.0); Blast Cells 0; Eosinophils % (manual) 0 (0-7); Metamyelocytes % 0; Myelocytes % 0; Promyelocytes % 0; Reactive Lymphocytes 0
[2024-04-28 10:06] LABS: Lymphocytes % (manual) 8 (10.0-50.0); Monocytes % (manual) 4 (0-12); Platelet Estimate Adequate
[2024-04-28] MEDS ORDERED: VALS160T53 PO (12:29)
[2024-04-28] MEDS ORDERED: FURO20TA3 PO (12:29)
[2024-04-28] MEDS: hydrALAZINE HCL 20 MG/ML VL IV PRN (12:31)
[2024-04-28] MEDS: cefTRIAXone 1GM/50ML D5W 50 ML IV ONE (13:49)
[2024-04-28] MEDS: OXYCODONE W/ ACETAMINOPHEN 5/325MG TABLET PO PRN (18:43)
[2024-04-28] MEDS: ALBUTEROL SULF 2.5 MG/0.5ML(0.5%) NEB SOLN NEB PRN (19:56)
[2024-04-28] MEDS: IPRATROPIUM BROM 0.5 MG/2.5ML INH SOL NEB PRN (19:56)
[2024-04-28] MEDS: NICOTINE 14 MG/24HR TOPICAL PATCH TD SCH (22:23)
[2024-04-28] MEDS: ACETAMINOPHEN 325 MG TAB PO PRN (22:23)
[2024-04-29 05:00] VITALS: BP 190/103; PULSE 60; RESP 19; TEMP 98; O2SAT 98
[2024-04-29] MEDS: MORPHINE SULFATE INJ 2 MG/ml SYRG IV PRN (05:15)
[2024-04-29 07:49] VITALS: O2SAT 96
[2024-04-29 08:00] VITALS: BP 162/84; PULSE 59; PULSE 61; RESP 18; TEMP 97.8; O2SAT 98
[2024-04-29] MEDS: cefTRIAXone 1GM/50ML D5W 50 ML IV SCH (08:24)
[2024-04-29 10:00] VITALS: O2SAT 98
[2024-04-29] MEDS ORDERED: NICOTINE 14 MG/24HR TOPICAL PATCH TD SCH (10:00)
[2024-04-29] MEDS ORDERED: hydrALAZINE HCL 20 MG/ML VL IV PRN (14:45)
[2024-04-29] MEDS: AZITHROMYCIN 500MG/ 250ML 250 ML IV ONE (15:19)
[2024-04-29] MEDS ORDERED: ALBU108A5 IN (16:16)
[2024-04-29] MEDS ORDERED: FLUT55AE IN (16:16)
[2024-04-29] MEDS ORDERED: PRED10TA PO (16:16)
[2024-04-29] MEDS ORDERED: DOXY1CAP57 PO (16:16)
[2024-04-29 17:00] VITALS: BP 144/65; PULSE 69; RESP 16; TEMP 97.8; O2SAT 94
[2024-04-29] MEDS: methylPREDNISolone SOD SUCC 40 MG/ML VL IV ONE (17:02)
[2024-04-29 17:52] VITALS: BP 144/76; PULSE 69; RESP 16; TEMP 97.8; O2SAT 94
[2024-04-30] MEDS ORDERED: VALSARTAN 80 MG TAB PO SCH (10:00)
[2024-04-30] MEDS ORDERED: hydroCHLOROthiazide 25 MG TAB PO SCH (10:00)
[2024-04-30] MEDS ORDERED: AZITHROMYCIN 500MG/ 250ML 250 ML IV SCH (10:00)
[2024-05-01 14:17] LABS: Hepatitis C Antibody Negative (Negative)
[2024-05-02 03:37] LABS: Hepatitis B Surface Antigen Negative (Negative)
== END 2024-04-29 18:21 | disposition home or self-care (01) | DRG 194 ==
LOC: ER 15:40 → TELE-WESTW 23:30 → TELE 23:30 → TELE-WESTW 23:58
PROVIDERS: ADMIT Nurse Practitioner Family; ATTEND Family Medicine
DX: I11.0 Hypertensive heart disease with heart failure (principal); J44.1 Chronic obstructive pulmonary disease with (acute) exacerbation; I50.33 Acute on chronic diastolic (congestive) heart failure; D72.829 Elevated white blood cell count, unspecified; E78.5 Hyperlipidemia, unspecified; F17.210 Nicotine dependence, cigarettes, uncomplicated; J98.11 Atelectasis; Z85.51 Personal history of malignant neoplasm of bladder; Z82.49 Family history of ischemic heart disease and other diseases of the circulatory system; Z79.899 Other long term (current) drug therapy; R06.03 Acute respiratory distress
CPT/HCPCS: 36415; 71045; 71275; 80053; 81001; 83605; 83880; 84484; 85007; 85025; 85027; 85379; 86803; 87040; 87081; 87340; 93005; 93306; 93970; 94640; G0378; J2405; J3490

== ENCOUNTER → 2024-05-22 | Outpatient (CLI) | payer MEDICAID ==
[~2024-05-22] MED LIST changes: +ALBU108A5 IN; +DOXY1CAP57 PO; +FLUT55AE IN; +FURO20TA3 PO; +PRED10TA PO; +VALS160T53 PO
[2024-05-22 08:51] LABS: Urine Bacteria None Seen /hpf (None Seen)
[2024-05-22 09:06] LABS: Basophils # (auto) 0.1 10 ^3/uL (0-0.2); Hemoglobin 17.7 g/dL (13.5-17.5); Lymphocytes # (auto) 1.7 10 ^3/uL (0.4-5.4); Lymphocytes % (auto) 22.8 % (10.0-50.0); Mean Corpuscular Hemoglobin 31.3 pg (28.0-32.0); Monocytes # (auto) 0.5 10 ^3/uL (0-1.3); Neutrophils # (auto) 4.7 10 ^3/uL (1.6-8.6); Nucleated Red Blood Cells % 0.4 %; Red Blood Cells 5.65 10^6/uL (4.5-5.90); Red Cell Distribution Width 13.9 % (11.8-14.3)
[2024-05-22 09:07] LABS: Urine Blood Negative /uL (Negative); Urine Clarity Clear (Clear); Urine Color Light-Yellow (Yellow); Urine Hyaline Cast FEW /lpf (0 - 2); Urine Protein, UAD Negative (Negative); Urine Specific Gravity 1.021 (1.001-1.035); Urine Urobilinogen Normal (Negative); Urine WBC 6 /hpf (0 - 3); Urine pH 5.5 (5.0-9.0)
[2024-05-22 09:10] LABS: Eosinophils # (auto) 0.5 10 ^3/uL (0-0.8); Eosinophils % (auto) 6.3 % (0.0-7.0); Hematocrit 50.2 % (41.0-53.0); Mean Corpuscular Hgb Conc. 35.3 g/dL (32.0-36.0); Mean Corpuscular Volume 88.8 fL (80.0-100.0); Neutrophils % (auto) 62.9 % (37.0-80.0); White Blood Cell 7.4 10^3/uL (4.4-10.8)
[2024-05-22 09:41] LABS: Alanine Aminotransferase 19 U/L (7-40); Albumin 4.3 g/dL (3.2-4.8); Alkaline Phosphatase 109 U/L (46-116); Anion Gap 6 (5-15); Aspartate Aminotransferase 16 U/L (13-40); BUN/Creatinine Ratio 14.2 (10.0-20.0); Bilirubin, Total 0.7 mg/dL (0.2-1.0); Blood Urea Nitrogen 21 mg/dL (9-23); Calcium 9.9 mg/dL (8.7-10.4); Carbon Dioxide 27 mmol/L (20-30); Chloride 106 mmol/L (98-107); Cholesterol 223 mg/dL (< 200); Glucose 92 mg/dL (74-106); HDL Cholesterol 55 mg/dL (40-59); LDL Cholesterol 157 mg/dL (< 100); Potassium 4.2 mmol/L (3.5-5.1); Sodium 139 mmol/L (136-145); Triglycerides 157 mg/dL (< 150)
[2024-05-22 09:42] LABS: Total Protein 6.7 g/dL (5.7-8.2)
== END | disposition home or self-care (01) ==
LOC: LAB 08:34
PROVIDERS: ATTEND Internal Medicine
DX: D49.4 Neoplasm of unspecified behavior of bladder (principal); R31.9 Hematuria, unspecified; E78.5 Hyperlipidemia, unspecified
CPT/HCPCS: 36415; 80053; 80061; 81001; 82105; 83036; 84153; 85025

== ENCOUNTER 2024-05-30 09:57 | Inpatient (IN) | payer MEDICAID ==
[~2024-05-30] VITALS: Ht 172.7 cm; Wt 80.2 kg
[2024-05-30 10:20] VITALS: PULSE 73; RESP 12; O2SAT 93
[2024-05-30 10:47] LABS: Basophils # (auto) 0.1 10 ^3/uL (0-0.2); Basophils % (auto) 1.1 % (0.0-2.0); Eosinophils # (auto) 0.3 10 ^3/uL (0-0.8); Eosinophils % (auto) 3.1 % (0.0-7.0); Hematocrit 50.6 % (41.0-53.0); Hemoglobin 17.6 g/dL (13.5-17.5); Lymphocytes % (auto) 21.1 % (10.0-50.0); Mean Corpuscular Hemoglobin 31.3 pg (28.0-32.0); Mean Corpuscular Hgb Conc. 34.9 g/dL (32.0-36.0); Mean Corpuscular Volume 89.8 fL (80.0-100.0); Monocytes # (auto) 0.7 10 ^3/uL (0-1.3); Monocytes % (auto) 7.5 % (0.0-12.0); Neutrophils # (auto) 6.5 10 ^3/uL (1.6-8.6); Neutrophils % (auto) 67.2 % (37.0-80.0); Nucleated Red Blood Cells % 0.1 %; Red Blood Cells 5.63 10^6/uL (4.5-5.90); Red Cell Distribution Width 14.2 % (11.8-14.3); White Blood Cell 9.6 10^3/uL (4.4-10.8)
[2024-05-30] MEDS: SODIUM CHLORIDE 0.9% 1,000 ML IVB ONE (10:58)
[2024-05-30] MEDS: ONDANSETRON HCL 4 MG/2 ML VIAL IV ONE (11:01)
[2024-05-30 11:02] LABS: Chloride 103 mmol/L (98-107); Potassium 3.9 mmol/L (3.5-5.1); Sodium 138 mmol/L (136-145)
[2024-05-30] MEDS: MORPHINE SULFATE 4 MG/ML SYR/VIAL IV ONE ×2 (11:02→15:09)
[2024-05-30 11:03] LABS: Anion Gap 6 (5-15); Calcium 9.8 mg/dL (8.7-10.4); Carbon Dioxide 29 mmol/L (20-30)
[2024-05-30 11:08] LABS: BUN/Creatinine Ratio 14.4 (10.0-20.0); Blood Urea Nitrogen 26 mg/dL (9-23); Glucose 92 mg/dL (74-106)
[2024-05-30 11:10] LABS: Creatine Kinase IFCC < 15 U/L (46-171)
[2024-05-30] MEDS ORDERED: NITROGLYCERIN 0.4 MG SL TAB SL PRN (16:15)
[2024-05-30] MEDS ORDERED: IPRATROPIUM BROM 0.5 MG/2.5ML INH SOL NEB PRN (16:30)
[2024-05-30] MEDS ORDERED: ALBUTEROL SULF 2.5 MG/0.5ML(0.5%) NEB SOLN NEB PRN (16:30)
[2024-05-30 16:42] LABS: Urine Bacteria None Seen /hpf (None Seen)
[2024-05-30] MEDS: ALBUTEROL SULF 2.5 MG/0.5ML(0.5%) NEB SOLN NEB ONE (16:49)
[2024-05-30] MEDS: IPRATROPIUM BROM 0.5 MG/2.5ML INH SOL NEB ONE (16:49)
[2024-05-30 17:09] LABS: Urine Blood Negative /uL (Negative); Urine Clarity Clear (Clear); Urine Color Light-Yellow (Yellow); Urine Hyaline Cast FEW /lpf (0 - 2); Urine Protein, UAD Negative (Negative); Urine Specific Gravity 1.019 (1.001-1.035); Urine Urobilinogen Normal (Negative); Urine WBC 3 /hpf (0 - 3); Urine pH 5.5 (5.0-9.0)
[2024-05-30] MEDS: SODIUM CHLORIDE 0.9% 1,000 ML IV SCH (17:09)
[2024-05-30] MEDS: PIPERACILLIN-TAZOB 3.375GM 100 ML IV ONE (17:32)
[2024-05-30] MEDS: ENOXAPARIN SOD 40 MG/0.4 ML SYRINGE SC SCH (17:42)
[2024-05-30] MEDS: PIPERACILLIN-TAZOB 3.375GM 100 ML IV SCH (18:00)
[2024-05-30 18:35] VITALS: BP 123/77; PULSE 71; RESP 16; TEMP 97.5; O2SAT 97
[2024-05-30 20:00] VITALS: PULSE 73
[2024-05-30 21:00] VITALS: BP 124/87; PULSE 68; RESP 17; TEMP 97.3; O2SAT 94
[2024-05-30] MEDS: ONDANSETRON HCL 4 MG/2 ML VIAL IV PRN (21:09)
[2024-05-30 21:30] VITALS: BP 123/77; PULSE 71; RESP 16; TEMP 97.5; O2SAT 97
[2024-05-31] VITALS (10 sets, daily range): BP systolic 128–159; BP diastolic 81–93; PULSE 61–80; RESP 15–18; TEMP 97.5–98.7; O2SAT 94–98
[2024-05-31] MEDS: MORPHINE SULFATE INJ 2 MG/ml SYRG IV PRN (00:40)
[2024-05-31 06:45] LABS: Basophils # (auto) 0.1 10 ^3/uL (0-0.2); Eosinophils # (auto) 0.3 10 ^3/uL (0-0.8); Eosinophils % (auto) 4.7 % (0.0-7.0); Hematocrit 47.1 % (41.0-53.0); Hemoglobin 16.5 g/dL (13.5-17.5); Lymphocytes # (auto) 2.2 10 ^3/uL (0.4-5.4); Lymphocytes % (auto) 31.3 % (10.0-50.0); Mean Corpuscular Hemoglobin 31.3 pg (28.0-32.0); Mean Corpuscular Hgb Conc. 35.1 g/dL (32.0-36.0); Mean Corpuscular Volume 89.1 fL (80.0-100.0); Monocytes # (auto) 0.5 10 ^3/uL (0-1.3); Monocytes % (auto) 7.7 % (0.0-12.0); Neutrophils # (auto) 3.9 10 ^3/uL (1.6-8.6); Neutrophils % (auto) 55.3 % (37.0-80.0); Nucleated Red Blood Cells % 0.1 %; Red Blood Cells 5.28 10^6/uL (4.5-5.90); Red Cell Distribution Width 14.2 % (11.8-14.3)
[2024-05-31 06:47] LABS: Alanine Aminotransferase 13 U/L (7-40); Alkaline Phosphatase 80 U/L (46-116); Anion Gap 6 (5-15); BUN/Creatinine Ratio 15.3 (10.0-20.0); Blood Urea Nitrogen 26 mg/dL (9-23); Calcium 9.2 mg/dL (8.7-10.4); Carbon Dioxide 30 mmol/L (20-30); Chloride 105 mmol/L (98-107); Glucose 85 mg/dL (74-106); Potassium 3.9 mmol/L (3.5-5.1); Sodium 141 mmol/L (136-145)
[2024-05-31 06:49] LABS: Albumin 3.6 g/dL (3.2-4.8); Aspartate Aminotransferase 11 U/L (13-40); Bilirubin, Total 0.4 mg/dL (0.2-1.0); Total Protein 5.8 g/dL (5.7-8.2)
[2024-05-31] MEDS ORDERED: PATIENTS OWN MEDICATION (Aspirin (Aspirin Low Dose) 81 MG) PO SCH (08:00)
[2024-05-31] MEDS ORDERED: ATORVASTATIN 20 MG TAB PO SCH (10:00)
[2024-05-31] MEDS: LOSARTAN POTASSIUM 50 MG TAB PO SCH (10:55)
[2024-05-31] MEDS: ASPirin-EC 81 mg tab PO SCH (10:55)
[2024-05-31] MEDS: FAMOTIDINE 20 MG TAB PO SCH (10:55)
[2024-05-31] MEDS: NICOTINE 21MG/24 HR TOPICAL PATCH TD ONE (15:36)
[2024-05-31] MEDS: AZITHROMYCIN 500MG/ 250ML 250 ML IV STA (15:36)
[2024-05-31 16:45] LABS: Creatinine, Urine 96.2 mg/dL (30.0-125.0)
[2024-05-31 16:46] LABS: Rapid Influenza A Negative (Negative); Rapid Influenza B Negative (Negative)
[2024-05-31 18:13] LABS: COVID19 ANTIGEN SOFIA FIA NEGATIVE (NEGATIVE)
[2024-05-31] MEDS: DOCUSATE SOD 100 MG CAP PO PRN (20:14)
[2024-05-31] MEDS: ATORVASTATIN 20 MG TAB PO SCH (21:46)
[2024-06-01] VITALS (8 sets, daily range): BP systolic 96–149; BP diastolic 60–93; PULSE 61–97; RESP 14–18; TEMP 97.4–98.1; O2SAT 95–100
[2024-06-01 07:05] LABS: Basophils # (auto) 0.1 10 ^3/uL (0-0.2); Basophils % (auto) 0.9 % (0.0-2.0); Eosinophils # (auto) 0.4 10 ^3/uL (0-0.8); Eosinophils % (auto) 4.9 % (0.0-7.0); Hemoglobin 16.8 g/dL (13.5-17.5); Lymphocytes # (auto) 1.7 10 ^3/uL (0.4-5.4); Lymphocytes % (auto) 22.3 % (10.0-50.0); Mean Corpuscular Hemoglobin 31.2 pg (28.0-32.0); Mean Corpuscular Volume 89.1 fL (80.0-100.0); Monocytes # (auto) 0.5 10 ^3/uL (0-1.3); Monocytes % (auto) 7.1 % (0.0-12.0); Neutrophils # (auto) 4.9 10 ^3/uL (1.6-8.6); Neutrophils % (auto) 64.8 % (37.0-80.0); Nucleated Red Blood Cells % 0.1 %; Red Blood Cells 5.38 10^6/uL (4.5-5.90); Red Cell Distribution Width 13.7 % (11.8-14.3); White Blood Cell 7.5 10^3/uL (4.4-10.8)
[2024-06-01 07:47] LABS: Alanine Aminotransferase 11 U/L (7-40); Albumin 3.8 g/dL (3.2-4.8); Alkaline Phosphatase 79 U/L (46-116); Anion Gap 5 (5-15); BUN/Creatinine Ratio 16.2 (10.0-20.0); Blood Urea Nitrogen 22 mg/dL (9-23); Calcium 9.7 mg/dL (8.7-10.4); Carbon Dioxide 28 mmol/L (20-30); Chloride 108 mmol/L (98-107); Glucose 91 mg/dL (74-106); Potassium 4.7 mmol/L (3.5-5.1); Sodium 141 mmol/L (136-145)
[2024-06-01 07:48] LABS: Aspartate Aminotransferase 11 U/L (13-40); Bilirubin, Total 0.5 mg/dL (0.2-1.0); Total Protein 5.9 g/dL (5.7-8.2)
[2024-06-01] MEDS: ADENOSINE 67 MG in GIVE UN-DILUTED 0 ML IV ONE (08:46)
[2024-06-01] MEDS: NICOTINE 21MG/24 HR TOPICAL PATCH TD SCH (10:00)
[2024-06-01] MEDS: AZITHROMYCIN 500MG/ 250ML 250 ML IV SCH (10:36)
[2024-06-01] MEDS: LACTULOSE 20Gm/30ML SOLN PO STA (12:40)
[2024-06-01] MEDS ORDERED: PRED20TA2 PO (18:25)
[2024-06-01] MEDS ORDERED: AZITTAB PO (18:25)
== END 2024-06-01 17:55 | disposition home or self-care (01) | DRG 815 ==
LOC: ER 09:57 → TELE 16:28 → TELE-EAST 18:40
PROVIDERS: ADMIT Internal Medicine Pulmonary Disease; ATTEND Internal Medicine Pulmonary Disease
DX: T67.5XXA Heat exhaustion, unspecified, initial encounter (principal); N17.0 Acute kidney failure with tubular necrosis; J15.69 Pneumonia due to other Gram-negative bacteria; I11.0 Hypertensive heart disease with heart failure; J15.9 Unspecified bacterial pneumonia; I50.22 Chronic systolic (congestive) heart failure; K21.9 Gastro-esophageal reflux disease without esophagitis; J44.1 Chronic obstructive pulmonary disease with (acute) exacerbation; E78.5 Hyperlipidemia, unspecified; E86.0 Dehydration; F17.210 Nicotine dependence, cigarettes, uncomplicated; J44.0 Chronic obstructive pulmonary disease with (acute) lower respiratory infection; G89.29 Other chronic pain; K52.9 Noninfective gastroenteritis and colitis, unspecified; Z85.51 Personal history of malignant neoplasm of bladder; Z82.49 Family history of ischemic heart disease and other diseases of the circulatory system; X30.XXXA Exposure to excessive natural heat, initial encounter; Y93.89 Activity, other specified; Y92.89 Other specified places as the place of occurrence of the external cause; Y99.8 Other external cause status; R07.89 Other chest pain
CPT/HCPCS: 36415; 71045; 74176; 80048; 80053; 81001; 82024; 82533; 82550; 82570; 84300; 84443; 84484; 85025; 87081; 87426; 87804; 93017; 94640; 96365; 96375; G0378; J0153; J2405; J2543

== ENCOUNTER → 2024-08-21 | Outpatient (CLI) | payer MEDICAID ==
[~2024-08-21] MED LIST changes: +AZITTAB PO; -DOXY1CAP57 PO; -PRED10TA PO; +PRED20TA2 PO
[2024-08-21 09:38] LABS: Triglycerides 153 mg/dL (< 150)
[2024-08-21 09:39] LABS: LDL Cholesterol 154 mg/dL (< 100)
[2024-08-21 09:40] LABS: Cholesterol 237 mg/dL (< 200); HDL Cholesterol 68 mg/dL (40-59)
== END | disposition home or self-care (01) ==
LOC: LAB 08:43
PROVIDERS: ATTEND Internal Medicine
DX: J44.9 Chronic obstructive pulmonary disease, unspecified (principal); M54.50 Low back pain, unspecified; E78.5 Hyperlipidemia, unspecified; N52.9 Male erectile dysfunction, unspecified
CPT/HCPCS: 36415; 80061; 82306; 82607; 83036; 84403

== ENCOUNTER 2024-09-08 17:43 | Emergency (ER) | payer MEDICAID ==
[~2024-09-08] VITALS: Ht 172.7 cm; Wt 85.0 kg
[2024-09-08 17:44] VITALS: BP 121/71; RESP 18; TEMP 98; O2SAT 98
--- NOTE | 2024-09-08 18:13 | ED.PDOC ---
HPI Comments 63 y.o male with PMH of HTN, bladder cancer, COPD, and hyperlipidemia, presents to the ED for a chief complaint of substernal chest pain associated with SOB and nausea that started earlier today s/p cutting wood. Patient reports pain is constant, non radiating, has no alleviating or precipitating factors and rates it a 8/10 on the pain scale. Patient reports similar pain in the past but did not seek medical attention then. He denies any vomiting, leg swelling, fever, chills, abdominal pain, or back pain. Chief Complaint: Chest Pain Time Seen by MD: 17:45 Primary Care Provider: unknown Reviewed Notes: Nurses Notes, Medications, Allergies Allergies: Coded Allergies: NO KNOWN ALLERGIES (Unverified , 12/20/10) Home Meds Active Scripts Prednisone (Prednisone) 20 Mg Tab, 40 MG PO DAILY for 2 Days, #4 MG Prov:RICH GRAJEDA RESIDENT 06/01/24 Azithromycin (Zithromax Z-Kieran) 250 Mg Tab, 250 MG PO DAILY for 4 Days, #4 TAB Prov:RICH GRAJEDA RESIDENT 06/01/24 Fluticasone Propionate (Inhala (Armonair Digihaler) 55 Mcg/Act Aer, 55 MCG IN BID for 30 Days, #1 AER Prov:NII RUFFIN MD 04/29/24 Albuterol Sulfate (Albuterol Sulfate Hfa) 108 Mcg/Act Aer, 108 MCG IN Q4H PRN for 30 Days, #2 AER Prov:NII RUFFIN MD 04/29/24 Reported Medications Valsartan-Hydrochlorothiazide (Diovan Hct) 160 /12.5 Tab, 1 TAB PO DAILY, #30 TAB 5 Refills 04/28/24 Furosemide (Furosemide) 20 Mg Tab, 20 MG PO DAILY for 30 Days, MG 04/28/24 Aspirin (Aspirin Low Dose) 81 Mg Chw, 81 MG PO DAILY@BREAKFAST, TAB.CHEW 06/02/23 Famotidine (Acid Controller Maximum S) 20 Mg Tab, 20 MG PO DAILY, TAB 06/02/23 Atorvastatin Calcium (ATORVASTATIN CALCIUM) 20 Mg Tab, 1 TAB PO DAILY 12/05/22 Losartan Potassium (Losartan Potassium) 50 Mg Tab, 1-2 TAB PO DAILY 12/05/22 Oxycodone W/ Acetaminophen (Endocet) 1 Tab Tab, 10-325 MG PO Q8HP 12/05/22 Information Source: Patient Mode of Arrival: Ambulatory Severity: Moderate Timing: Hours Duration: Since onset Location: Substernal Radiation: No Radiation Quality: Sharp Onset: At Rest Cardiac Risk Factors: Hyperlipidemia, HTN PE Risk Factors: None History of: None Modifying Factors: Nothing Associated Signs and Symptoms: SOB, N/V (nausea only ) Past Medical History PAST MEDICAL HISTORY: Cancer, COPD, High Lipids, HTN Surgical History (Other): bladder s/p bladder cancer , back Family History Family History: Reviewed,noncontributory to illness Social History Smoker: Cigarettes, Greater Than 1 Pack/Day Alcohol: Occasionally Drugs: Denies Drug Use Lives In: Home Constitutional: denies: chills, diaphoresis, fatigue, fever, malaise, sweats, weakness, others EENTM: denies: blurred vision, double vision, ear bleeding, ear discharge, ear drainage, ear pain, ear ringing, eye pain, eye redness, hearing loss, mouth pain, mouth swelling, nasal discharge, nose bleeding, nose congestion, nose pain, photophobia, tearing, throat pain, throat swelling, voice changes, others Respiratory: reports: SOB at rest, shortness of breath, SOB with excertion; denies: cough, hemoptysis, orthopnea, stridor, wheezing, others Cardiovascular: reports: chest pain; denies: dizzy spells, diaphoresis, Dyspnea on exertion, edema, irregular heart beat, left arm pain, lightheadedness, p alpitations, PND, syncope, others Gastrointestinal: reports: nausea; denies: abdomen distended, abdominal pain, blood streaked bowels, constipated, diarrhea, dysphagia, difficulty swallowing, hematemesis, melena, poor appetite, poor fluid intake, rectal bleeding, rectal pain, vomiting, others Genitourinary: denies: burning, dysuria, flank pain, frequency, hematuria, incontinence, penile discharge, penile sore, pain, testicle pain, testicle swe lling, urgency, others Neurological: denies: dizziness, fainting, headache, left sided numbness, left sided weakness, numbness, paresthesia, pre-existing deficit, right sided numbness, right sided weakness, seizure, speech problems, tingling, tremors, weakness, others Musculoskeletal: denies: back pain, gout, joint pain, joint swelling, muscle pain, muscle stiffness, neck pain, others Integumetry: denies: bruises, change in color, change in hair/nails, dryness, laceration, lesions, lumps, rash, wounds, others Allergic/Immunocompromised: denies: Difficulty Healing, Frequent Infections, Hives, Itching, others Hematologic/Lymphatic: denies: anemia, blood clots, easy bleeding, easy bruising, swollen glands, others Endocrine: denies: excessive hunger, excessive sweating, excessive thirst, excessive urination, flushing, intolerance to cold, intolerance to heat, unexplained weight gain, unexplained weight loss, others Psychiatric: denies: anxiety, bipolar disorder, depression, hopeless, panic disorder, schizophrenia, sleepless, suicidal, others All Other Systems: Reviewed and Negative Physical Exam General Appearance: No Apparent Distress HEENT: Normal ENT Inspection, Pharynx Normal, TMs Normal Neck: Full Range of Motion, Non-Tender, Normal, Normal Inspection Respiratory: Chest Non-Tender, Lungs Clear, No Accessory Muscle Use, No Respiratory Distress, Normal Breath Sounds Cardiovascular: No Edema, No JVD, No Murmur, No Gallop, Normal Peripheral Pulses, Regular Rate/Rhythm Breast Exam: Deferred Gastrointestinal: No Organomegaly, Non Tender, No Pulsatile Mass, Normal Bowel Sounds, Soft Genitalia: Deferred Pelvic: Deferred Rectal: Deferred Extremities: No calf tenderness, Normal capillary refill, Normal inspection, Normal range of motion, Non-tender, No pedal edema Musculoskeletal : Apperance: Normal Neurologic: Alert, final canoe inspector II-XII nml as Tested, No Motor Deficits, Normal Affect, Normal Mood, No Sensory Deficits Cerebellar Function: Normal Reflexes: Normal Skin: Dry, Normal Color, Warm Lymphatic: No Adenopathy EKG EKG : Pulse Rate (adult): 72 Cardiac Rhythm: NSR Was a procedure done? Was a procedure done?: No CP Differential Dx Differential Diagnosis: N/A Differential Diagnosis: Angina, Costochondritis, Esophageal reflux/spasm, Gastritis, Myocardial Infarction, Pericarditis X-Ray, Labs, Meds, VS Vital Signs Date Time Temp Pulse Resp B/P (MAP) Pulse Ox O2 Delivery O2 Flow Rate FiO2 09/08/24 18:14 72 09/08/24 18:13 107 09/08/24 17:50 72 09/08/24 17:44 98.0 72 18 121/ (88) 72 09/08/24 17:44 98.0 72 18 121/ (88) 98 98.0 Lab Test 09/08/24 17:49 Range/Units White Blood Count 12.4 H 4.4-10.8 10^3/uL Red Blood Count 5.66 4.5-5.90 10^6/uL Hemoglobin 17.6 H 13.5-17.5 g/dL Hematocrit 50.1 41.0-53.0 % Mean Corpuscular Volume 88.6 80.0-100.0 fL Mean Corpuscular Hemoglobin 31.1 28.0-32.0 pg Mean Corpuscular Hemoglobin Concent 35.0 32.0-36.0 g/dL Red Cell Distribution Width 13.3 11.8-14.3 % Platelet Count 281 140-450 10^3/uL Mean Platelet Volume 7.5 6.9-10.8 fL Neutrophils (%) (Auto) 74.7 37.0-80.0 % Lymphocytes (%) (Auto) 17.7 10.0-50.0 % Monocytes (%) (Auto) 4.7 0.0-12.0 % Eosinophils (%) (Auto) 2.0 0.0-7.0 % Basophils (%) (Auto) 0.9 0.0-2.0 % Neutrophils # (Auto) 9.3 H 1.6-8.6 10 ^3/uL Lymphocytes # (Auto) 2.2 0.4-5.4 10 ^3/uL Monocytes # (Auto) 0.6 0-1.3 10 ^3/uL Eosinophils # (Auto) 0.2 0-0.8 10 ^3/uL Basophils # (Auto) 0.1 0-0.2 10 ^3/uL Nucleated Red Blood Cells 0.1 % Sodium Level 141 136-145 mmol/L Potassium Level 4.4 3.5-5.1 mmol/L Chloride Level 104 98-107 mmol/L Carbon Dioxide Level 28 20-31 mmol/L Anion Gap 9 5-15 Blood Urea Nitrogen 22 9-23 mg/dL Creatinine 1.58 H 0.700-1.30 mg/dL Glomerular Filtration Rate Calc 49 >90 mL/min BUN/Creatinine Ratio 13.9 10.0-20.0 Serum Glucose 81 74-106 mg/dL Calcium Level 10.1 8.7-10.4 mg/dL Total Bilirubin 0.5 0.2-1.0 mg/dL Aspartate Amino Transferase (AST) 24 13-40 U/L Alanine Aminotransferase (ALT) 17 7-40 U/L Alkaline Phosphatase 104 46-116 U/L Troponin I High Sensitivity 10 </=54 ng/L Total Protein 7.1 5.7-8.2 g/dL Albumin 4.5 3.2-4.8 g/dL The patient was resting comfortably The CBC shows an elevated white blood cell count of 12.4 The rest of the CBC is within normal limits The chemistry panel shows a creatinine of 1.58 The patient's troponin level is negative We did order a chest x-ray but it seems that the patient has eloped from the department's. Time of 1ST Reevaluation: 18:09 Reevaluation 1ST: Unchanged Patient Education/Counseling: Diagnosis, Treatment, Prognosis Family Education/Counseling: No Family Present Departure 1 Departure Time of Disposition: 20:17 Impression: Primary Impression: Acute chest pain Disposition: 07 LEFT AWOL/ELOPED Condition: Fair Critical Care Note Critical Care Time?: No Stability Stability form required: No Heart Score Heart Score: Heart Score Response (Comments) Value History Slightly Suspicious 0 EKG Normal 0 Age 45-64 1 Risk Factors 1 or 2 risk factors 1 Troponin Normal limit 0 Total 2 I personally scribed for LEROY MARCOS MD ([email or web address]) on 09/08/24 at 18:13. Electronically submitted by Sagrario Rooney ([place]). I personally scribed for LEROY MARCOS MD ([email or web address]) on 09/08/24 at 18:13. Electronically submitted by Sagrario Rooney ([employer]). I personally scribed for LEROY MARCOS MD ([email or web address]) on 09/08/24 at 18:14. Electronically submitted by Sagrario Rooney ([employer]). LEROY MARCOS MD Sep 08, 2024 18:13
[2024-09-08 18:14] VITALS: PULSE 72
[2024-09-08 18:14] LABS: Basophils # (auto) 0.1 10 ^3/uL (0-0.2); Basophils % (auto) 0.9 % (0.0-2.0); Eosinophils # (auto) 0.2 10 ^3/uL (0-0.8); Hematocrit 50.1 % (41.0-53.0); Hemoglobin 17.6 g/dL (13.5-17.5); Lymphocytes # (auto) 2.2 10 ^3/uL (0.4-5.4); Lymphocytes % (auto) 17.7 % (10.0-50.0); Mean Corpuscular Hemoglobin 31.1 pg (28.0-32.0); Mean Corpuscular Volume 88.6 fL (80.0-100.0); Monocytes # (auto) 0.6 10 ^3/uL (0-1.3); Monocytes % (auto) 4.7 % (0.0-12.0); Neutrophils # (auto) 9.3 10 ^3/uL (1.6-8.6); Neutrophils % (auto) 74.7 % (37.0-80.0); Nucleated Red Blood Cells % 0.1 %; Platelet Count (auto) 281 10^3/uL (140-450); Red Blood Cells 5.66 10^6/uL (4.5-5.90); Red Cell Distribution Width 13.3 % (11.8-14.3); White Blood Cell 12.4 10^3/uL (4.4-10.8)
[2024-09-08 18:25] LABS: Alanine Aminotransferase 17 U/L (7-40); Alkaline Phosphatase 104 U/L (46-116); Anion Gap 9 (5-15); Aspartate Aminotransferase 24 U/L (13-40); BUN/Creatinine Ratio 13.9 (10.0-20.0); Blood Urea Nitrogen 22 mg/dL (9-23); Calcium 10.1 mg/dL (8.7-10.4); Carbon Dioxide 28 mmol/L (20-31); Chloride 104 mmol/L (98-107); Glucose 81 mg/dL (74-106); Potassium 4.4 mmol/L (3.5-5.1); Sodium 141 mmol/L (136-145)
[2024-09-08 18:26] LABS: Albumin 4.5 g/dL (3.2-4.8); Bilirubin, Total 0.5 mg/dL (0.2-1.0); Total Protein 7.1 g/dL (5.7-8.2)
--- NOTE | 2024-09-09 07:01 | ECG ---
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
== END 2024-09-08 20:16 | disposition left against medical advice (07) ==
LOC: ER 17:43
DX: R07.89 Other chest pain (principal); J44.9 Chronic obstructive pulmonary disease, unspecified; I10 Essential (primary) hypertension; E78.5 Hyperlipidemia, unspecified; F17.210 Nicotine dependence, cigarettes, uncomplicated; D72.829 Elevated white blood cell count, unspecified; Z79.52 Long term (current) use of systemic steroids; Z79.82 Long term (current) use of aspirin; Z79.899 Other long term (current) drug therapy; Z85.51 Personal history of malignant neoplasm of bladder
CPT/HCPCS: 36415; 80053; 84484; 85025; 93005

== ENCOUNTER 2024-09-14 09:07 | Inpatient (IN) | payer MEDICAID ==
[~2024-09-14] VITALS: Ht 172.7 cm; Wt 88.5 kg
--- NOTE | 2024-09-14 09:34 | ED.PDOC ---
GI ASSESSMENT HPI Comments 63y M who presents to the ED via EMS for chief complaint of abdominal pain. Pt states he has been having R sided abdominal pain since earlier this AM. Pt states the pain is sharp, constant, with no associated exacerbating or relieving factors. Pt has associated nausea but denies any other symptoms. Pt states he had these symptoms in the past and states last time, he was dx with heat stroke. Pt otherwise has noted BP of 219/106 in the ED with noted history of HTN. Pt denies any other symptoms at this time. Chief Complaint: Abdominal Pain Time Seen by MD: 09:28 Primary Care Provider: NONE Reviewed Notes: Medications, Allergies Allergies: Coded Allergies: NO KNOWN ALLERGIES (Unverified , 12/20/10) Home Meds Active Scripts Prednisone (Prednisone) 20 Mg Tab, 40 MG PO DAILY for 2 Days, #4 MG Prov:RICH GRAJEDA RESIDENT 06/01/24 Azithromycin (Zithromax Z-Kieran) 250 Mg Tab, 250 MG PO DAILY for 4 Days, #4 TAB Prov:RICH GRAJEDA RESIDENT 06/01/24 Fluticasone Propionate (Inhala (Armonair Digihaler) 55 Mcg/Act Aer, 55 MCG IN BID for 30 Days, #1 AER Prov:NII RUFFIN MD 04/29/24 Albuterol Sulfate (Albuterol Sulfate Hfa) 108 Mcg/Act Aer, 108 MCG IN Q4H PRN for 30 Days, #2 AER Prov:NII RUFFIN MD 04/29/24 Reported Medications Valsartan-Hydrochlorothiazide (Diovan Hct) 160 /12.5 Tab, 1 TAB PO DAILY, #30 TAB 5 Refills 04/28/24 Furosemide (Furosemide) 20 Mg Tab, 20 MG PO DAILY for 30 Days, MG 04/28/24 Aspirin (Aspirin Low Dose) 81 Mg Chw, 81 MG PO DAILY@BREAKFAST, TAB.CHEW 06/02/23 Famotidine (Acid Controller Maximum S) 20 Mg Tab, 20 MG PO DAILY, TAB 06/02/23 Atorvastatin Calcium (ATORVASTATIN CALCIUM) 20 Mg Tab, 1 TAB PO DAILY 12/05/22 Losartan Potassium (Losartan Potassium) 50 Mg Tab, 1-2 TAB PO DAILY 12/05/22 Oxycodone W/ Acetaminophen (Endocet) 1 Tab Tab, 10-325 MG PO Q8HP 12/05/22 Information Source: Patient Mode of Arrival: EMS Brought in by: EMS Past Medical History PAST MEDICAL HISTORY: Cancer, COPD, High Lipids, HTN Surgical History: Unknown Family History Family History: Reviewed,noncontributory to illness Social History Smoker: Cigarettes, Greater Than 1 Pack/Day Alcohol: Occasionally Drugs: Denies Drug Use Lives In: Home Constitutional: denies: chills, diaphoresis, fatigue, fever, malaise, sweats, weakness, others EENTM: denies: blurred vision, double vision, ear bleeding, ear discharge, ear drainage, ear pain, ear ringing, eye pain, eye redness, hearing loss, mouth pain, mouth swelling, nasal discharge, nose bleeding, nose congestion, nose p ain, photophobia, tearing, throat pain, throat swelling, voice changes, others Respiratory: denies: cough, hemoptysis, orthopnea, SOB at rest, shortness of breath, SOB with excertion, stridor, wheezing, others Cardiovascular: denies: chest pain, dizzy spells, diaphoresis, Dyspnea on exertion, edema, irregular heart beat, left arm pain, lightheadedness, palpitations, PND, syncope, others Gastrointestinal: reports: abdominal pain, nausea; denies: abdomen distended, blood streaked bowels, constipated, diarrhea, dysphagia, difficulty swallowing, hematemesis, melena, poor appetite, poor fluid intake, rectal bleeding, rectal pain, vomiting, others Genitourinary: denies: burning, dysuria, flank pain, frequency, hematuria, incontinence, penile discharge, penile sore, pain, testicle pain, testicle swelling, urgency, others Neurological: denies: dizziness, fainting, headache, left sided numbness, left sided weakness, numbness, paresthesia, pre-existing deficit, right sided numbness, right sided weakness, seizure, speech problems, tingling, tremors, weakness, others Musculoskeletal: denies: back pain, gout, joint pain, joint swelling, muscle pain, muscle stiffness, neck pain, others Integumetry: denies: bruises, change in color, change in hair/nails, dryness, laceration, lesions, lumps, rash, wounds, others Allergic/Immunocompromised: denies: Difficulty Healing, Frequent Infections, Hives, Itching, others Hematologic/Lymphatic: denies: anemia, blood clots, easy bleeding, easy bruising, swollen glands, others Endocrine: denies: excessive hunger, excessive sweating, excessive thirst, excessive urination, flushing, intolerance to cold, intolerance to heat, unexplained weight gain, unexplained weight loss, others Psychiatric: denies: anxiety, bipolar disorder, depression, hopeless, panic disorder, schizophrenia, sleepless, suicidal, others All Other Systems: Reviewed and Negative Physical Exam General Appearance: Moderate Distress HEENT: Normal ENT Inspection, Pharynx Normal, TMs Normal Neck: Full Range of Motion, Non-Tender, Normal, Normal Inspection Respiratory: Chest Non-Tender, Lungs Clear, No Accessory Muscle Use, No Respiratory Distress, Normal Breath Sounds Cardiovascular: No Edema, No JVD, No Murmur, No Gallop, Normal Peripheral Pulses, Regular Rate/Rhythm Breast Exam: Deferred Gastrointestinal: RLQ Genitalia: Deferred Pelvic: Deferred Rectal: Deferred Extremities: No calf tenderness, Normal capillary refill, Normal inspection, Normal range of motion, Non-tender, No pedal edema Musculoskeletal : Apperance: Normal Neurologic: Alert, radiation / chemistry technician II-XII nml as Tested, No Motor Deficits, Normal Affect, Normal Mood, No Sensory Deficits Cerebellar Function: Normal Reflexes: Normal Skin: Dry, Normal Color, Warm Lymphatic: No Adenopathy Was a procedure done? Was a procedure done?: No GI differential Dx Differential Diagnosis: Gastritis/PUD, Gastroenteritis, Dehydration Other Differential Diagnosis heat stroke, dyhydration, X-Ray, Labs, Meds, VS Vital Signs Date Time Temp Pulse Resp B/P (MAP) Pulse Ox O2 Delivery O2 Flow Rate FiO2 09/14/24 13:55 16 99 Room Air* 0 21 09/14/24 13:54 60 16 149/98 (115) 99 09/14/24 13:51 60 16 149/98 09/14/24 12:15 68 16 148/97 (114) 95 09/14/24 10:28 97.8 60 18 158/99 (118) 96 97.8 09/14/24 10:26 60 19 158/99 09/14/24 09:39 98.1 60 19 163/104 (123) 99 98.1 09/14/24 09:39 61 19 163/106 09/14/24 09:39 60 19 9 Room Air 09/14/24 09:07 97.8 51 24 219/106 (143) 100 Lab Test 09/14/24 09:48 09/14/24 09:30 Range/Units Urine Color Yellow Yellow Urine Clarity Clear Clear Urine pH 6.0 5.0-9.0 Urine Specific [place] 1.018 1.001-1.035 Urine Protein Negative Negative Urine Ketones Negative Negative Urine Blood Negative Negative /uL Urine Nitrite Negative Negative Urine Bilirubin Negative Negative Urine Urobilinogen Normal Negative mg/dL Urine Leukocyte Esterase Negative Negative /uL Urine RBC 2 0 - 3 /hpf Urine WBC 1 0 - 3 /hpf Urine Squamous Epithelial Cells None seen <5 /hpf Urine Bacteria None seen None Seen /hpf Urine Glucose Normal Normal mg/dL White Blood Count 12.4 H 4.4-10.8 10^3/uL Red Blood Count 5.94 H 4.5-5.90 10^6/uL Hemoglobin 18.3 H 13.5-17.5 g/dL Hematocrit 52.9 41.0-53.0 % Mean Corpuscular Volume 89.0 80.0-100.0 fL Mean Corpuscular Hemoglobin 30.7 28.0-32.0 pg Mean Corpuscular Hemoglobin Concent 34.5 32.0-36.0 g/dL Red Cell Distribution Width 13.4 11.8-14.3 % Platelet Count 253 140-450 10^3/uL Mean Platelet Volume 7.3 6.9-10.8 fL Neutrophils (%) (Auto) 81.1 H 37.0-80.0 % Lymphocytes (%) (Auto) 10.5 10.0-50.0 % Monocytes (%) (Auto) 5.8 0.0-12.0 % Eosinophils (%) (Auto) 1.9 0.0-7.0 % Basophils (%) (Auto) 0.7 0.0-2.0 % Neutrophils # (Auto) 10.1 H 1.6-8.6 10 ^3/uL Lymphocytes # (Auto) 1.3 0.4-5.4 10 ^3/uL Monocytes # (Auto) 0.7 0-1.3 10 ^3/uL Eosinophils # (Auto) 0.2 0-0.8 10 ^3/uL Basophils # (Auto) 0.1 0-0.2 10 ^3/uL Nucleated Red Blood Cells 0.1 % Sodium Level 138 136-145 mmol/L Potassium Level 4.5 3.5-5.1 mmol/L Chloride Level 104 98-107 mmol/L Carbon Dioxide Level 28 20-31 mmol/L Anion Gap 6 5-15 Blood Urea Nitrogen 17 9-23 mg/dL Creatinine 1.46 H 0.700-1.30 mg/dL Glomerular Filtration Rate Calc 54 >90 mL/min BUN/Creatinine Ratio 11.6 10.0-20.0 Serum Glucose 101 74-106 mg/dL Calcium Level 10.3 8.7-10.4 mg/dL Total Bilirubin 1.5 H 0.2-1.0 mg/dL Direct Bilirubin 0.8 H <0.3 mg/dL Aspartate Amino Transferase (AST) 46 H 13-40 U/L Alanine Aminotransferase (ALT) 29 7-40 U/L Alkaline Phosphatase 110 46-116 U/L Troponin I High Sensitivity 7 </=54 ng/L Total Protein 7.2 5.7-8.2 g/dL Albumin 4.5 3.2-4.8 g/dL Current Medications Medications (Trade) Dose Ordered Sig/Adonay Route Start Time Stop Time Status Last Admin Sodium Chloride 1,000 ml @ 1,000 mls/hr Q1H ONCE IV 09/14/24 09:30 09/14/24 10:29 DC 09/14/24 09:38 Pantoprazole Sodium (Protonix) 40 mg ONCE ONCE IV 09/14/24 09:30 09/14/24 09:31 DC 09/14/24 09:38 Ondansetron HCl (Zofran) 4 mg ONCE ONCE IV 09/14/24 09:30 09/14/24 09:31 DC 09/14/24 09:38 Morphine Sulfate 4 mg ONCE ONCE IV 09/14/24 09:30 09/14/24 09:31 DC 09/14/24 09:39 Sodium Chloride 1,000 ml @ 1,000 mls/hr Q1H ONCE IV 09/14/24 12:30 09/14/24 13:29 DC 09/14/24 13:51 Morphine Sulfate 4 mg ONCE ONCE IV 09/14/24 12:30 09/14/24 13:01 DC 09/14/24 13:[address] [address] Ph: [phone] DIAGNOSTIC IMAGING Diagnostic Imaging Report : [id number] Signed PATIENT: THAO SERVINACCT: [id number] UNIT: [id number] : 1960 LOC: ER ROOM / BED: / AGE / SEX: 63 / M ADM STATUS: REG ER SERVICE 0924 ORDERING PHYSICIAN: HOUSTON ZAPATA MD PROCEDURE(s): ABPLIV - CT AB PEL WITH IV CON ONLY REASON: severe abdominal pain ORDER NUMBER(s): [id number], ACCESSION NUMBER(s): [id number] Exam: CT CT AB PEL WITH IV CON ONLY History: severe abdominal pain Comparison Study: None available at time of dictation. TECHNIQUE: A digital metal window screen assembler image was obtained. During the uneventful, intravenous administration of contrast material, multislice data acquisition was obtained through the abdomen and pelvis. The data set was subsequently reconstructed into axial images. Images were reviewed on a work station using a combination of axial and multiplanar using a variety of window levels and settings. Radiation Dose Information: CT Dose: CTDI volume is 9.71 mGy. Dose-length product is 582.2 mGy*cm FINDINGS: Evaluation of solid organs is limited due to lack of intravenous contrast use. Findings: Lung Bases: No acute or significant lung base finding. Normal heart size. No pleural or pericardial effusion. Liver: The liver is normal in size. No focal lesions. Normal hepatic vascular enhancement. Gallbladder and Biliary Tree: Gallbladder wall thickening. CBD appears dilated. Spleen: Unremarkable Pancreas: The pancreas is grossly normal in appearance. Adrenal Glands: Unremarkable Kidneys: Kidneys are without calculi or hydronephrosis. Bilateral renal cysts. Bladder: Grossly unremarkable for degree of distention. Bowel: The stomach is grossly normal in appearance. Small bowel and colon are normal in caliber and distribution. The appendix is normal. Ascites: Absent Lymphadenopathy: No mesenteric, retroperitoneal or periportal lymphadenopathy. Abdominal Wall and Mesentery: Unremarkable. Vasculature: The visualized abdominal aorta is normal in size and caliber. Pelvic Organs: Unremarkable Musculoskeletal: No aggressive focal bony lesions, acute fractures. Grade 1 anterolisthesis of L4 on L5 . Degenerative changes of the visualized spine. Postsurgical changes of the thoracic spine. Soft tissues: Unremarkable IMPRESSION: 1. Gallbladder wall thickening. Recommend correlation for possible acute cholecystitis. Further evaluation with right upper quadrant ultrasound may be useful. 2. Dilated CBD measuring up to 1.0 cm. 3. Bilateral renal cysts. 4. Grade 1 anterolisthesis of L4 on L5 with degenerative and postsurgical changes of the visualized spine. 5. Radiation optimization: All CT scans at this facility use at least one of these dose optimization techniques: automated exposure control mA and/or kV adjustment per patient size (includes targeted exams where dose is matched to clinical indication) or iterative reconstruction. HS:Y ATED BY: ROYCE LOPES DO DICTATED DATE/TIME: 09/14/24 113 SIGNED BY: ROYCE LOPES DO SIGNED DATE/TIME: 09/14/24 113 CC: [place] [id number] Ph: [phone] DIAGNOSTIC IMAGING Diagnostic Imaging Report : [id number] Signed PATIENT: THAO SERVINACCT: [id number] UNIT: [id number] : 1960 LOC: ER ROOM / BED: / AGE / SEX: 63 / M ADM STATUS: REG ER SERVICE 1223 ORDERING PHYSICIAN: HOUSTON ZAPATA MD PROCEDURE(s): ABDC - ABDOMEN COMPLETE SONOGRAM REASON: ruq pain ORDER NUMBER(s): [id number], ACCESSION NUMBER(s): [id number] INDICATION: ruq pain TECHNIQUE: Multiple real-time sonographic images of the abdomen were obtained. COMPARISON: ABPLIV on DOS: 12/05/22 FINDINGS: The liver is increased in echogenicity. The liver measures 19 cm. No intrahepatic biliary ductal dilatation is noted. The gallbladder wall measures 0.6 cm and is thickened. There is mild pericholecystic edema. No gallstones or sludge is seen. The common duct measures 0.5 cm and is unremarkable. Sonographic green's sign is reportedly negative. The right kidney measures 9 cm. No hydronephrosis. The left kidney measures 9.2 cm. No hydronephrosis. There are bilateral renal cysts measuring up to 0.9 cm in the right and 1.8 cm on the left. There is increased echogenicity of the bilateral kidneys suggestive of chronic medical renal disease. The spleen measures 11.9 cm, within normal limits. The echogenicity is within normal limits. The pancreas is not well visualized due to obscuration from bowel gas. The visualized portions of the IVC and aorta are grossly unremarkable. IMPRESSION: No shadowing gallstones. Nonspecific gallbladder wall thickening and pericholecystic edema Hepatic steatosis and hepatomegaly. Echogenic bilateral kidneys suggestive of chronic medical renal disease. No hydronephrosis. ATED BY: DAMI BRISCOE MD DICTATED DATE/TIME: 09/14/241409 SIGNED BY: DAMI BRISCOE MD SIGNED DATE/TIME: 09/14/241409 CC: Time of 1ST Reevaluation: 10:00 Reevaluation 1ST: Unchanged Patient Education/Counseling: Diagnosis, Treatment Family Education/Counseling: No Family Present Departure 1 Departure Time of Disposition: 14:17 (Patient presented with abdominal pain that was concerning for possible appendicits, gastritis, cholecystitis, colitis, gastroenteritis, sbo, or orther possible surgical emergency. Data: 1. I ordered and reviewed the result of at least 3 labs including a CBC, BMP, and Urinalysis. 2. I independently interpreted the following tests: CT Abdoment and Pelvis is concerning for acute cholecystitis .Risk:This patient has a high risk of morbidity due to further diagnostic testing or treatment and may suffer from an acute abdominal process disorder. Workup reveals concern for acute cholecystitis and patient should be admitted for further workup. and possible expert consultation. ) Impression: Primary Impression: Right upper quadrant pain Additional Impression: Acute acalculous cholecystitis Disposition: ADMITTED INPATIENT Admit to: Med Surg Condition: Serious Critical Care Note Critical Care Time?: Yes Critical care comment: Acute abdominal pain Authorized and Performed by: Houston Zapata MD Total critical care time: Approximately 38 minutes Due to a high probability of clinically significant, life threatening deterioration, the patient required my highest level of preparedness to intervene emergently and I personally spent this critical care time directly and personally managing the patient. This critical care time included obtaining a history; examining the patient; pulse oximetry; ordering and review of studies; arranging urgent treatment with development of a management plan; evaluation of patient's response to treatment; frequent reassessment; and, discussions with other providers. This critical care time was performed to assess and manage the high probability of imminent, life-threatening deterioration that could result in multi-organ failure. It was exclusive of separately billable procedures and treating other patients and teaching time. Please see my other sections and the rest of the note for further information on patient assessment and treatment. Stability Stability form required: No Heart Score Heart Score: Heart Score Response (Comments) Value History N/A 0 EKG N/A 0 Age N/A 0 Risk Factors N/A 0 Troponin N/A 0 Total 0 I personally scribed for HOUSTON ZAPATA MD (ERIN) on 09/14/24 at 09:34. Electronically submitted by Aleja Meraz ([employer]). I personally scribed for HOUSTON ZAPATA MD (ERIN) on 09/14/24 at 12:30. Electronically submitted by Aleja Meraz ([employer]). I personally scribed for HOUSTON ZAPATA MD (ERIN) on 09/14/24 at 14:15. Electronically submitted by Aleja Meraz ([employer]). HOUSTON ZAPATA MD Sep 14, 2024 09:34
[2024-09-14] MEDS: PANTOPRAZOLE 40 MG/10 ML VIAL INJ IV ONE (09:38)
[2024-09-14] MEDS: ONDANSETRON HCL 4 MG/2 ML VIAL IV ONE ×2 (09:38→15:17)
[2024-09-14] MEDS: SODIUM CHLORIDE 0.9% 1,000 ML IV ONE ×3 (09:38→15:19)
[2024-09-14] MEDS: MORPHINE SULFATE 4 MG/ML SYR/VIAL IV ONE ×3 (09:39→15:18)
[2024-09-14 09:58] LABS: Basophils # (auto) 0.1 10 ^3/uL (0-0.2); Eosinophils # (auto) 0.2 10 ^3/uL (0-0.8); Monocytes # (auto) 0.7 10 ^3/uL (0-1.3); Monocytes % (auto) 5.8 % (0.0-12.0); Red Cell Distribution Width 13.4 % (11.8-14.3)
[2024-09-14 10:01] LABS: Basophils % (auto) 0.7 % (0.0-2.0); Eosinophils % (auto) 1.9 % (0.0-7.0); Hematocrit 52.9 % (41.0-53.0); Hemoglobin 18.3 g/dL (13.5-17.5); Lymphocytes # (auto) 1.3 10 ^3/uL (0.4-5.4); Lymphocytes % (auto) 10.5 % (10.0-50.0); Mean Corpuscular Hemoglobin 30.7 pg (28.0-32.0); Mean Corpuscular Hgb Conc. 34.5 g/dL (32.0-36.0); Neutrophils # (auto) 10.1 10 ^3/uL (1.6-8.6); Neutrophils % (auto) 81.1 % (37.0-80.0); Nucleated Red Blood Cells % 0.1 %; Platelet Count (auto) 253 10^3/uL (140-450); Red Blood Cells 5.94 10^6/uL (4.5-5.90); White Blood Cell 12.4 10^3/uL (4.4-10.8)
[2024-09-14 10:31] LABS: Urine Bacteria None Seen /hpf (None Seen)
[2024-09-14 10:37] LABS: Chloride 104 mmol/L (98-107); Potassium 4.5 mmol/L (3.5-5.1); Sodium 138 mmol/L (136-145)
[2024-09-14 10:38] LABS: Anion Gap 6 (5-15); Calcium 10.3 mg/dL (8.7-10.4); Carbon Dioxide 28 mmol/L (20-31)
[2024-09-14 10:43] LABS: BUN/Creatinine Ratio 11.6 (10.0-20.0); Blood Urea Nitrogen 17 mg/dL (9-23); Glucose 101 mg/dL (74-106)
[2024-09-14 10:52] LABS: Urine Blood Negative /uL (Negative); Urine Clarity Clear (Clear); Urine Color Yellow (Yellow); Urine Protein, UAD Negative (Negative); Urine Specific Gravity 1.018 (1.001-1.035); Urine Urobilinogen Normal (Negative); Urine WBC 1 /hpf (0 - 3)
[2024-09-14] MEDS: IOHEXOL 300 MG/ML 100ML BOTTLE IJ ONE (11:02)
--- NOTE | 2024-09-14 11:41 | DVH ---
Exam: CT CT AB PEL WITH IV CON ONLY History: severe abdominal pain Comparison Study: None available at time of dictation. TECHNIQUE: A digital hyperion administrator image was obtained. During the uneventful, intravenous administration of c ontrast material, multislice data acquisition was obtained through the abdomen and pelvis. The data s et was subsequently reconstructed into axial images. Images were reviewed on a work station using a c ombination of axial and multiplanar using a variety of window levels and settings. Radiation Dose Information: CT Dose: CTDI volume is 9.71 mGy. Dose-length product is 582.2 mGy*cm FINDINGS: Evaluation of solid organs is limited due to lack of intravenous contrast use. Findings: Lung Bases: No acute or significant lung base finding. Normal heart size. No pleural or pericardial effusion. Liver: The liver is normal in size. No focal lesions. Normal hepatic vascular enhancement. Gallbladder and Biliary Tree: Gallbladder wall thickening. CBD appears dilated. Spleen: Unremarkable Pancreas: The pancreas is grossly normal in appearance. Adrenal Glands: Unremarkable Kidneys: Kidneys are without calculi or hydronephrosis. Bilateral renal cysts. Bladder: Grossly unremarkable for degree of distention. Bowel: The stomach is grossly normal in appearance. Small bowel and colon are normal in caliber and d istribution. The appendix is normal. Ascites: Absent Lymphadenopathy: No mesenteric, retroperitoneal or periportal lymphadenopathy. Abdominal Wall and Mesentery: Unremarkable. Vasculature: The visualized abdominal aorta is normal in size and caliber. Pelvic Organs: Unremarkable Musculoskeletal: No aggressive focal bony lesions, acute fractures. Grade 1 anterolisthesis of L4 on L5 . Degenerative changes of the visualized spine. Postsurgical changes of the thoracic spine. Soft tissues: Unremarkable IMPRESSION: 1. Gallbladder wall thickening. Recommend correlation for possible acute cholecystitis. Further yue luation with right upper quadrant ultrasound may be useful. 2. Dilated CBD measuring up to 1.0 cm. 3. Bilateral renal cysts. 4. Grade 1 anterolisthesis of L4 on L5 with degenerative and postsurgical changes of the visualized s pine. 5. Radiation optimization: All CT scans at this facility use at least one of these dose optimization techniques: automated exposure control mA and/or kV adjustment per patient size (includes targeted e xams where dose is matched to clinical indication) or iterative reconstruction. HS:Y
[2024-09-14 13:08] LABS: Albumin 4.5 g/dL (3.2-4.8); Bilirubin, Direct 0.8 mg/dL (<0.3); Bilirubin, Total 1.5 mg/dL (0.2-1.0); Total Protein 7.2 g/dL (5.7-8.2)
[2024-09-14 13:55] VITALS: RESP 16; O2SAT 99
--- NOTE | 2024-09-14 14:11 | DVH ---
INDICATION: ruq pain TECHNIQUE: Multiple real-time sonographic images of the abdomen were obtained. COMPARISON: ABPLIV on DOS: 12/05/22 FINDINGS: The liver is increased in echogenicity. The liver measures 19 cm. No intrahepatic biliary ductal dilatation is noted. The gallbladder wall measures 0.6 cm and is thickened. There is mild pericholecystic edema. No gal lstones or sludge is seen. The common duct measures 0.5 cm and is unremarkable. Sonographic green' s sign is reportedly negative. The right kidney measures 9 cm. No hydronephrosis. The left kidney measures 9.2 cm. No hydronephros is. There are bilateral renal cysts measuring up to 0.9 cm in the right and 1.8 cm on the left. There is increased echogenicity of the bilateral kidneys suggestive of chronic medical renal disease. The spleen measures 11.9 cm, within normal limits. The echogenicity is within normal limits. The pancreas is not well visualized due to obscuration from bowel gas. The visualized portions of the IVC and aorta are grossly unremarkable. IMPRESSION: No shadowing gallstones. Nonspecific gallbladder wall thickening and pericholecystic edema Hepatic steatosis and hepatomegaly. Echogenic bilateral kidneys suggestive of chronic medical renal disease. No hydronephrosis.
[2024-09-14] MEDS: metroNIDAZOLE 500MG/100ML 100 ML IV ONE (15:18)
[2024-09-14] MEDS: ceFAZolin 2 GM/D5W50ml 50 ML IV ONE (15:38)
[2024-09-14] MEDS: hydrALAZINE HCL 20 MG/ML VL IV ONE (16:53)
--- NOTE | 2024-09-14 16:59 | DVHHP2 ---
History of Present Illness Reason for Visit: abdominal pain History of Present Illness 63 yo male with severe abdominal pain came in with complaints of pain in the abdomen severe enough to wake him up from sleep with pain patient is still appearing severely uncomfortable and patient was recommended for admission for continued evaluation Cardiovascular: HTN Review of Systems Constitutional: Yes: Weakness Eyes: No: Pain, Vision change, Conjunctivae inflammation, Eyelid inflammation, Other, Redness ENT: No: Ear pain, Ear discharge, Nose pain, Nose discharge, Nose congestion, Mouth pain, Mouth swelling, Throat pain, Throat swelling, Other Respiratory: No: Cough, Dry, Shortness of breath, SOB with excertion, Wheezing, Hemoptysis, Pleuritic Pain, Sputum, Wheezing, Other Gastrointestinal: Abdominal Pain; No: Nausea, Vomiting, Diarrhea, Constipation, Melena, Hematochezia, Other Genitourinary: No Dysuria, No Frequency, No Incontinence, No Hematuria, No Retention, No Other Musculoskeletal: No: other, neck pain, shoulder pain, arm pain, back pain, hand pain, leg pain, foot pain Skin: No: Rash, Lesions, Jaundice, Bruising, Other Neurological: No: Weakness, Numbness, Incoordination, Change in speech, Confusion, Seizures, Other Allergies: Coded Allergies: NO KNOWN ALLERGIES (Unverified , 12/20/10) Medications Current Medications Medications Dose Ordered Sig/Adonay Route Start Time Stop Time Status Last Admin Dose Admin Metronidazole 100 ml @ 100 mls/hr Q8HR IV 09/14/24 22:00 UNV Sodium Chloride 1,000 ml @ 75 mls/hr [id number] IV 09/14/24 16:00 UNV Exam Vital Signs Vital Signs Date Time Temp Pulse Resp B/P (MAP) Pulse Ox O2 Delivery O2 Flow Rate FiO2 09/14/24 16:15 54 19 193/113 09/14/24 16:10 98.0 94 98.0 09/14/24 13:55 Room Air* 0 21 General Appearance: Alert, Oriented X3, moderate distress HEENT: Atraumatic, PERRLA Respiratory: Clear to auscultation, Normal air movement Cardiovascular: Regular rate, Normal S1, Normal S2 Abdominal: Normal bowel sounds, Soft, No tenderness Extremities: No clubbing, No cyanosis Skin: No rashes, No breakdown Neuro: Normal gait, Normal speech Psych/Mental Status: Mood NL Labs/Xrays Labs Test 09/14/24 09:48 09/14/24 09:30 Range/Units Urine Color Yellow Yellow Urine Clarity Clear Clear Urine pH 6.0 5.0-9.0 Urine Specific [place] 1.018 1.001-1.035 Urine Protein Negative Negative Urine Ketones Negative Negative Urine Blood Negative Negative /uL Urine Nitrite Negative Negative Urine Bilirubin Negative Negative Urine Urobilinogen Normal Negative mg/dL Urine Leukocyte Esterase Negative Negative /uL Urine RBC 2 0 - 3 /hpf Urine WBC 1 0 - 3 /hpf Urine Squamous Epithelial Cells None seen <5 /hpf Urine Bacteria None seen None Seen /hpf Urine Glucose Normal Normal mg/dL White Blood Count 12.4 H 4.4-10.8 10^3/uL Red Blood Count 5.94 H 4.5-5.90 10^6/uL Hemoglobin 18.3 H 13.5-17.5 g/dL Hematocrit 52.9 41.0-53.0 % Mean Corpuscular Volume 89.0 80.0-100.0 fL Mean Corpuscular Hemoglobin 30.7 28.0-32.0 pg Mean Corpuscular Hemoglobin Concent 34.5 32.0-36.0 g/dL Red Cell Distribution Width 13.4 11.8-14.3 % Platelet Count 253 140-450 10^3/uL Mean Platelet Volume 7.3 6.9-10.8 fL Neutrophils (%) (Auto) 81.1 H 37.0-80.0 % Lymphocytes (%) (Auto) 10.5 10.0-50.0 % Monocytes (%) (Auto) 5.8 0.0-12.0 % Eosinophils (%) (Auto) 1.9 0.0-7.0 % Basophils (%) (Auto) 0.7 0.0-2.0 % Neutrophils # (Auto) 10.1 H 1.6-8.6 10 ^3/uL Lymphocytes # (Auto) 1.3 0.4-5.4 10 ^3/uL Monocytes # (Auto) 0.7 0-1.3 10 ^3/uL Eosinophils # (Auto) 0.2 0-0.8 10 ^3/uL Basophils # (Auto) 0.1 0-0.2 10 ^3/uL Nucleated Red Blood Cells 0.1 % Sodium Level 138 136-145 mmol/L Potassium Level 4.5 3.5-5.1 mmol/L Chloride Level 104 98-107 mmol/L Carbon Dioxide Level 28 20-31 mmol/L Anion Gap 6 5-15 Blood Urea Nitrogen 17 9-23 mg/dL Creatinine 1.46 H 0.700-1.30 mg/dL Glomerular Filtration Rate Calc 54 >90 mL/min BUN/Creatinine Ratio 11.6 10.0-20.0 Serum Glucose 101 74-106 mg/dL Calcium Level 10.3 8.7-10.4 mg/dL Total Bilirubin 1.5 H 0.2-1.0 mg/dL Direct Bilirubin 0.8 H <0.3 mg/dL Aspartate Amino Transferase (AST) 46 H 13-40 U/L Alanine Aminotransferase (ALT) 29 7-40 U/L Alkaline Phosphatase 110 46-116 U/L Troponin I High Sensitivity 7 </=54 ng/L Total Protein 7.2 5.7-8.2 g/dL Albumin 4.5 3.2-4.8 g/dL Assessment/Plan Assessment/Plan Admit Med/Surge Abdominal Pain Acute [place] suspected CT abdomen showed biliary dilatation and inflammation US no acute signs of stones surgery request IV hydration NPO after midnight just in case IV abx flagy for coverage and elevated white count Plan discussed with: Patient My Orders Orders - SYLVIA MORALES MD Procedure Category Date Status Time * Surgical Consult CONS 09/14/24 Transmitted Metronidazole PHA 09/14/24 Logged 500mg/100ml (Flagyl 22:00 Admit ADMIT 09/14/24 Transmitted 15:52 Code Status CODE 09/14/24 Transmitted 15:52 Vital Signs [facility] 09/14/24 In Process 15:52 Review Orders With NEIL 09/14/24 In Process Adm. 15:52 Npo (Nothing By DIET 09/14/24 Transmitted Mouth) Diet Dinner Notify Of Changes [facility] 09/14/24 In Process From Base 15:52 Advance Directive [facility] 09/14/24 In Process 15:52 Basic Metabolic Panel LAB 09/14/24 Logged 15:52 Complete Blood Count LAB 09/14/24 Logged 15:52 Patient Condition ORDERS 09/14/24 Transmitted 15:52 Allergies [facility] 09/14/24 In Process 15:52 Notify Of Changes [facility] 09/14/24 In Process From Base 15:52 Podiatric Surgeon For [facility] 09/14/24 In Process 24 Hours 15:52 Oxygen By Nasal RT 09/14/24 Transmitted Cannula 15:52 Sodium Chloride 0.9% PHA 09/14/24 Logged 16:00 Problem List: (1) Acute acalculous cholecystitis (2) Right upper quadrant pain (3) Dehydration Date of Service: Sep 14, 2024 Billing Provider: SYLVIA MORALES MD Common Visit Codes: [id number] INP/OBS CARE (HIGH) SYLVIA MORALES MD Sep 14, 2024 16:59
[2024-09-14] MEDS: SODIUM CHLORIDE 0.9% 1,000 ML IV SCH (17:38)
[2024-09-14] MEDS: HYDROmorphone HCL 2 MG/ML VL/or syr IV ONE (17:38)
[2024-09-14 18:29] LABS: Basophils # (auto) 0.1 10 ^3/uL (0-0.2); Basophils % (auto) 0.8 % (0.0-2.0); Eosinophils # (auto) 0.2 10 ^3/uL (0-0.8); Eosinophils % (auto) 2.1 % (0.0-7.0); Hemoglobin 17.6 g/dL (13.5-17.5); Lymphocytes # (auto) 1.8 10 ^3/uL (0.4-5.4); Lymphocytes % (auto) 17.1 % (10.0-50.0); Mean Corpuscular Hgb Conc. 34.4 g/dL (32.0-36.0); Mean Corpuscular Volume 89.9 fL (80.0-100.0); Monocytes # (auto) 0.7 10 ^3/uL (0-1.3); Monocytes % (auto) 6.7 % (0.0-12.0); Neutrophils # (auto) 7.6 10 ^3/uL (1.6-8.6); Neutrophils % (auto) 73.3 % (37.0-80.0); Platelet Count (auto) 248 10^3/uL (140-450); Red Blood Cells 5.67 10^6/uL (4.5-5.90); Red Cell Distribution Width 13.4 % (11.8-14.3); White Blood Cell 10.4 10^3/uL (4.4-10.8)
[2024-09-14 18:30] LABS: Chloride 108 mmol/L (98-107); Potassium 4.6 mmol/L (3.5-5.1); Sodium 141 mmol/L (136-145)
[2024-09-14 18:31] LABS: Anion Gap 6 (5-15); Carbon Dioxide 27 mmol/L (20-31)
[2024-09-14 18:32] LABS: Calcium 9.3 mg/dL (8.7-10.4)
[2024-09-14 18:37] LABS: BUN/Creatinine Ratio 8.9 (10.0-20.0); Blood Urea Nitrogen 12 mg/dL (9-23); Glucose 89 mg/dL (74-106)
[2024-09-14 18:41] VITALS: BP 112/77; PULSE 78; RESP 16; TEMP 97.8; O2SAT 96
[2024-09-14 18:50] VITALS: RESP 17
[2024-09-14 21:00] VITALS: BP 154/76; PULSE 75; RESP 19; TEMP 98; O2SAT 94
[2024-09-14] MEDS ORDERED: LACT10SO3 PO (21:09)
[2024-09-14] MEDS: metroNIDAZOLE 500MG/100ML 100 ML IV SCH (21:21)
[2024-09-14] MEDS: MORPHINE SULFATE INJ 2 MG/ml SYRG IV PRN (23:29)
[2024-09-15 01:00] VITALS: BP 155/77; PULSE 74; RESP 17; TEMP 97.6; O2SAT 90
[2024-09-15 05:00] VITALS: BP 128/71; PULSE 71; RESP 17; TEMP 99.4; O2SAT 90
[2024-09-15 09:00] VITALS: BP 134/78; PULSE 76; RESP 18; TEMP 98.5; O2SAT 94
--- NOTE | 2024-09-15 11:28 | DVHPN2 ---
Subjective The patient is seen and examined at bedside. Complain of severe abdominal pain. Requests Dilaudid. The patient however walk downstairs to smoke without any pain. Reviewed: Care Plan, H&P, Labs, Medications, Previous Orders, Radiology Changes from previous H/P or p: No Changes Eyes: No Pain, No Vision change, No Conjunctivae inflammation, No Eyelid inflammation, No Other, No Redness ENT: No Ear pain, No Ear discharge, No Nose pain, No Nose discharge, No Nose congestion, No Mouth pain, No Mouth swelling, No Throat pain, No Throat swelling, No Other Respiratory: No Cough, No Dry, No Shortness of breath, No SOB with excertion, No Wheezing, No Hemoptysis, No Pleuritic Pain, No Sputum, No Other Gastrointestinal: No Nausea, No Vomiting; Abdominal Pain; No Diarrhea, No Constipation, No Melena, No Hematochezia, No Other Genitourinary: No Dysuria, No Frequency, No Incontinence, No Hematuria, No Retention, No Other Musculoskeletal: No other, No neck pain, No shoulder pain, No arm pain, No back pain, No hand pain, No leg pain, No foot pain Skin: No Rash, No Lesions, No Jaundice, No Bruising, No Other Objective Vitals Vital Signs Date Time Temp Pulse Resp B/P (MAP) Pulse Ox O2 Delivery O2 Flow Rate FiO2 09/15/24 10:01 76 17 134/78 09/15/24 09:00 98.5 94 98.5 09/15/24 08:02 Room Air* 0 21 Intake/Output Intake and Output 09/15/24 07:00 Intake Total 4100 ml Balance 4100 ml Intake IV Total 4100 ml # Voids 3 General Appearance: Alert, Oriented X3, Cooperative, No acute distress HEENT: Atraumatic, PERRLA, EOMI, Mucous membr. moist/pink Neck: Supple Lungs: Clear to auscultation, Normal air movement Cardiovascular: Regular rate, Normal S1, Normal S2, No murmurs, Gallops, Rubs Abdomen: Normal bowel sounds, Soft, No tenderness Neuro: Cranial nerves 3-12 NL Psych/Mental Status: Mental status NL Medications Current Medications Medications Dose Ordered Sig/Adonay Route Start Time Stop Time Status Last Admin Dose Admin Metronidazole 100 ml @ 100 mls/hr Q8HR IV 09/14/24 22:00 09/15/24 05:43 100 MLS/HR Sodium Chloride 1,000 ml @ 75 mls/hr [id number] IV 09/14/24 16:00 09/15/24 05:50 75 MLS/HR Morphine Sulfate 2 mg Q4HPRN PRN IV 09/14/24 22:15 09/15/24 10:01 2 MG Laboratory Results Laboratory Tests 09/14/24 18:00 Chemistry Test 09/14/24 18:00 Calcium Level 9.3 mg/dL (8.7-10.4) Urinalysis Test 09/14/24 09:48 Urine Color Yellow (Yellow) Urine Clarity Clear (Clear) Urine pH 6.0 (5.0-9.0) Urine Specific [place] 1.018 (1.001-1.035) Urine Protein Negative (Negative) Urine Ketones Negative (Negative) Urine Blood Negative /uL (Negative) Urine Nitrite Negative (Negative) Urine Bilirubin Negative (Negative) Urine Urobilinogen Normal mg/dL (Negative) Urine Leukocyte Esterase Negative /uL (Negative) Urine RBC 2 /hpf (0 - 3) Urine WBC 1 /hpf (0 - 3) Urine Squamous Epithelial Cells None seen /hpf (<5) Urine Bacteria None seen /hpf (None Seen) Urine Glucose Normal mg/dL (Normal) Labs and/or images reviewed: Labs reviewed by me Assessment/Plan Assessment/Plan Abdominal pain Per CT scan abdomen and pelvis gallbladder wall thickening possible acute cholecystitis Common bile duct dilation per CT scan abdomen pelvis Plan: Continuing current management. Continuing with pain medication. Advised the patient for smoking sensation. I am continuing his pain regimen right now and we will not give him Dilaudid because he not in severe pain he able to ambulate downstairs to smoke so he is not in severe pain that required Dilaudid. Continuing IV antibiotic with Zosyn. Waiting for surgeon to see the patient. Plan discussed with: Patient Date of Service: Sep 15, 2024 Billing Provider: POPEYE MCKEON MD Common Visit Codes: [id number] INP/OBS CARE(HIGH) POPEYE MCKEON MD Sep 15, 2024 11:28
--- NOTE | 2024-09-15 12:00 | DVHINCON2 ---
Date of service: Sep 15, 2024 Family History: Family history: Cardiovascular disease G8 FATHER Allergies: Coded Allergies: NO KNOWN ALLERGIES (Unverified , 12/20/10) Home Meds Active Scripts Prednisone (Prednisone) 20 Mg Tab, 40 MG PO DAILY for 2 Days, #4 MG Prov:RICH GRAJEDA RESIDENT 06/01/24 Azithromycin (Zithromax Z-Kieran) 250 Mg Tab, 250 MG PO DAILY for 4 Days, #4 TAB Prov:RICH GRAJEDA RESIDENT 06/01/24 Fluticasone Propionate (Inhala (Armonair Digihaler) 55 Mcg/Act Aer, 55 MCG IN BI D for 30 Days, #1 AER Prov:NII RUFFIN MD 04/29/24 Albuterol Sulfate (Albuterol Sulfate Hfa) 108 Mcg/Act Aer, 108 MCG IN Q4H PRN for 30 Days, #2 AER Prov:NII RUFFIN MD 04/29/24 Reported Medications Lactulose (Lactulose) 10 Gm/15 Ml Ila, 10 GM PO, ML 09/14/24 Valsartan-Hydrochlorothiazide (Diovan Hct) 160 /12.5 Tab, 1 TAB PO DAILY, #30 TAB 5 Refills 04/28/24 Furosemide (Furosemide) 20 Mg Tab, 20 MG PO DAILY for 30 Days, MG 04/28/24 Aspirin (Aspirin Low Dose) 81 Mg Chw, 81 MG PO DAILY@BREAKFAST, TAB.CHEW 06/02/23 Famotidine (Acid Controller Maximum S) 20 Mg Tab, 20 MG PO DAILY, TAB 06/02/23 Atorvastatin Calcium (ATORVASTATIN CALCIUM) 20 Mg Tab, 1 TAB PO DAILY 12/05/22 Losartan Potassium (Losartan Potassium) 50 Mg Tab, 1-2 TAB PO DAILY 12/05/22 Oxycodone W/ Acetaminophen (Endocet) 1 Tab Tab, 10-325 MG PO Q8HP 12/05/22 Current Medications Current Medications Medications (Trade) Dose Ordered Sig/Adonay Route PRN Reason Start Time Stop Time Status Last Admin Metronidazole 100 ml @ 100 mls/hr Q8HR IV 09/14/24 22:00 09/15/24 05:43 Sodium Chloride 1,000 ml @ 75 mls/hr [id number] IV 09/14/24 16:00 09/15/24 05:50 Morphine Sulfate 2 mg Q4HPRN PRN IV SEVERE PAIN (7-10 PAIN SCALE) 09/14/24 22:15 09/15/24 10:01 Piperacillin Sod/ Tazobactam Sod 100 ml @ 25 mls/hr Q8HR IV 09/15/24 14:00 Vital Signs Vital Signs Date Time Temp Pulse Resp B/P (MAP) Pulse Ox O2 Delivery O2 Flow Rate FiO2 09/15/24 10:01 76 17 134/78 09/15/24 09:00 98.5 94 98.5 09/15/24 08:02 Room Air* 0 21 Labs/Diagnostic Data Labs Test 09/14/24 18:00 09/14/24 09:48 09/14/24 09:30 Range/Units White Blood Count 10.4 4.4-10.8 10^3/uL Red Blood Count 5.67 4.5-5.90 10^6/uL Hemoglobin 17.6 H 13.5-17.5 g/dL Hematocrit 51.0 41.0-53.0 % Mean Corpuscular Volume 89.9 80.0-100.0 fL Mean Corpuscular Hemoglobin 31.0 28.0-32.0 pg Mean Corpuscular Hemoglobin Concent 34.4 32.0-36.0 g/dL Red Cell Distribution Width 13.4 11.8-14.3 % Platelet Count 248 140-450 10^3/uL Mean Platelet Volume 7.6 6.9-10.8 fL Neutrophils (%) (Auto) 73.3 37.0-80.0 % Lymphocytes (%) (Auto) 17.1 10.0-50.0 % Monocytes (%) (Auto) 6.7 0.0-12.0 % Eosinophils (%) (Auto) 2.1 0.0-7.0 % Basophils (%) (Auto) 0.8 0.0-2.0 % Neutrophils # (Auto) 7.6 1.6-8.6 10 ^3/uL Lymphocytes # (Auto) 1.8 0.4-5.4 10 ^3/uL Monocytes # (Auto) 0.7 0-1.3 10 ^3/uL Eosinophils # (Auto) 0.2 0-0.8 10 ^3/uL Basophils # (Auto) 0.1 0-0.2 10 ^3/uL Nucleated Red Blood Cells 0.0 % Sodium Level 141 136-145 mmol/L Potassium Level 4.6 3.5-5.1 mmol/L Chloride Level 108 H 98-107 mmol/L Carbon Dioxide Level 27 20-31 mmol/L Anion Gap 6 5-15 Blood Urea Nitrogen 12 9-23 mg/dL Creatinine 1.35 H 0.700-1.30 mg/dL Glomerular Filtration Rate Calc 59 >90 mL/min BUN/Creatinine Ratio 8.9 L 10.0-20.0 Serum Glucose 89 74-106 mg/dL Calcium Level 9.3 8.7-10.4 mg/dL Urine Color Yellow Yellow Urine Clarity Clear Clear Urine pH 6.0 5.0-9.0 Urine Specific [place] 1.018 1.001-1.035 Urine Protein Negative Negative Urine Ketones Negative Negative Urine Blood Negative Negative /uL Urine Nitrite Negative Negative Urine Bilirubin Negative Negative Urine Urobilinogen Normal Negative mg/dL Urine Leukocyte Esterase Negative Negative /uL Urine RBC 2 0 - 3 /hpf Urine WBC 1 0 - 3 /hpf Urine Squamous Epithelial Cells None seen <5 /hpf Urine Bacteria None seen None Seen /hpf Urine Glucose Normal Normal mg/dL Total Bilirubin 1.5 H 0.2-1.0 mg/dL Direct Bilirubin 0.8 H <0.3 mg/dL Aspartate Amino Transferase (AST) 46 H 13-40 U/L Alanine Aminotransferase (ALT) 29 7-40 U/L Alkaline Phosphatase 110 46-116 U/L Troponin I High Sensitivity 7 </=54 ng/L Total Protein 7.2 5.7-8.2 g/dL Albumin 4.5 3.2-4.8 g/dL Assessment 63 year old male denies alcohol use, abdomen diffusely tender and slightly distended, no guarding rebound or localized tenderness, will check mrcp and hida scan, will follow with you, no indication for emergency surgical intervention Plan discussed with: Patient ANOOP ADAME MD Sep 15, 2024 12:00
[2024-09-15 13:00] VITALS: BP 138/87; PULSE 77; RESP 18; TEMP 98.5; O2SAT 95
[2024-09-15] MEDS: PIPERACILLIN-TAZOB 3.375GM 100 ML IV SCH (15:41)
[2024-09-15 16:45] VITALS: BP 159/100; PULSE 71; RESP 18; TEMP 98.4; O2SAT 95
[2024-09-15 21:00] VITALS: BP 156/80; PULSE 67; RESP 17; TEMP 98.2; O2SAT 95
[2024-09-16] VITALS (8 sets, daily range): BP systolic 115–143; BP diastolic 62–85; PULSE 64–80; RESP 16–19; TEMP 97.4–99; O2SAT 90–97
[2024-09-16] MEDS: MORPHINE SULFATE INJ 2 MG/ml SYRG IV PRN (00:20)
--- NOTE | 2024-09-16 08:45 | DVHPN2 ---
Progress Note Date Seen: Sep 16, 2024 Medical Necessity Reason Pt with a Central, PICC or Fol: No Objective vital signs Vital Sign Date Time Temp Pulse Resp B/P (MAP) Pulse Ox O2 Delivery O2 Flow Rate FiO2 09/16/24 08:26 70 18 116/69 09/16/24 05:00 99.0 94 99.0 09/15/24 20:00 Room Air* 0 21 Total Intake and Output 09/15/24 09/15/24 09/16/24 15:00 23:00 07:00 Intake Total 200 ml 371 ml Balance 200 ml 371 ml medications Current Medications Medications Dose Ordered Sig/Adonay Route Start Time Stop Time Status Last Admin Dose Admin Metronidazole 100 ml @ 100 mls/hr Q8HR IV 09/14/24 22:00 09/16/24 05:47 100 MLS/HR Sodium Chloride 1,000 ml @ 75 mls/hr [id number] IV 09/14/24 16:00 09/16/24 08:25 75 MLS/HR Piperacillin Sod/ Tazobactam Sod 100 ml @ 25 mls/hr Q8HR IV 09/15/24 14:00 09/16/24 07:49 25 MLS/HR Morphine Sulfate 2 mg Q3HPRN PRN IV 09/15/24 16:15 09/16/24 08:26 2 MG laboratory and microbiology Laboratory Tests 09/14/24 18:00 Test 09/14/24 18:00 Range/Units Serum Glucose 89 74-106 mg/dL Problem List/Assessment/Plan Problem List/Assessment/Plan 09/16/24 he was given po liquids by primary MD, c/o persistent upper abdominal discomfort, HIDA scan and MRCP still pending, final disposition will depend on findings Plan discussed with: Patient ANOOP ADAME MD Sep 16, 2024 08:45
[2024-09-16] MEDS ORDERED: MORPHINE SULFATE INJ 2 MG/ml SYRG ONE (12:52)
--- NOTE | 2024-09-16 14:38 | DVHPN2 ---
Subjective The patient is seen and examined at bedside. Still complaint of abdominal pain. Reviewed: Care Plan, H&P, Labs, Medications, Previous Orders, Radiology Changes from previous H/P or p: No Changes Eyes: No Pain, No Vision change, No Conjunctivae inflammation, No Eyelid inflammation, No Other, No Redness ENT: No Ear pain, No Ear discharge, No Nose pain, No Nose discharge, No Nose congestion, No Mouth pain, No Mouth swelling, No Throat pain, No Throat swelling, No Other Respiratory: No Cough, No Dry, No Shortness of breath, No SOB with excertion, No Wheezing, No Hemoptysis, No Pleuritic Pain, No Sputum, No Other Gastrointestinal: No Nausea, No Vomiting; Abdominal Pain; No Diarrhea, No Constipation, No Melena, No Hematochezia, No Other Genitourinary: No Dysuria, No Frequency, No Incontinence, No Hematuria, No Retention, No Other Musculoskeletal: No other, No neck pain, No shoulder pain, No arm pain, No back pain, No hand pain, No leg pain, No foot pain Skin: No Rash, No Lesions, No Jaundice, No Bruising, No Other Objective Vitals Vital Signs Date Time Temp Pulse Resp B/P (MAP) Pulse Ox O2 Delivery O2 Flow Rate FiO2 09/16/24 13:01 64 18 117/60 09/16/24 10:11 97.8 97 97.8 09/16/24 08:00 Room Air* 0 21 Intake/Output Intake and Output 09/16/24 07:00 Intake Total 571 ml Balance 571 ml Intake Oral 71 ml IV Total 500 ml # Voids 7 General Appearance: Alert, Oriented X3, Cooperative, No acute distress HEENT: Atraumatic, PERRLA, EOMI, Mucous membr. moist/pink Neck: Supple Lungs: Clear to auscultation, Normal air movement Cardiovascular: Regular rate, Normal S1, Normal S2, No murmurs, Gallops, Rubs Abdomen: Normal bowel sounds, Soft, No tenderness Neuro: Cranial nerves 3-12 NL Psych/Mental Status: Mental status NL Medications Current Medications Medications Dose Ordered Sig/Adonay Route Start Time Stop Time Status Last Admin Dose Admin Metronidazole 100 ml @ 100 mls/hr Q8HR IV 09/14/24 22:00 09/16/24 13:01 100 MLS/HR Sodium Chloride 1,000 ml @ 75 mls/hr [id number] IV 09/14/24 16:00 09/16/24 08:25 75 MLS/HR Piperacillin Sod/ Tazobactam Sod 100 ml @ 25 mls/hr Q8HR IV 09/15/24 14:00 09/16/24 07:49 25 MLS/HR Morphine Sulfate 2 mg Q3HPRN PRN IV 09/15/24 16:15 09/16/24 13:01 2 MG Laboratory Results Laboratory Tests 09/14/24 18:00 Urinalysis Test 09/14/24 09:48 Urine Color Yellow (Yellow) Urine Clarity Clear (Clear) Urine pH 6.0 (5.0-9.0) Urine Specific [place] 1.018 (1.001-1.035) Urine Protein Negative (Negative) Urine Ketones Negative (Negative) Urine Blood Negative /uL (Negative) Urine Nitrite Negative (Negative) Urine Bilirubin Negative (Negative) Urine Urobilinogen Normal mg/dL (Negative) Urine Leukocyte Esterase Negative /uL (Negative) Urine RBC 2 /hpf (0 - 3) Urine WBC 1 /hpf (0 - 3) Urine Squamous Epithelial Cells None seen /hpf (<5) Urine Bacteria None seen /hpf (None Seen) Urine Glucose Normal mg/dL (Normal) Labs and/or images reviewed: Labs reviewed by me Assessment/Plan Assessment/Plan Abdominal pain Per CT scan abdomen and pelvis gallbladder wall thickening possible acute cholecystitis Common bile duct dilation per CT scan abdomen pelvis Continuing current management. Continuing with IV pain medication. Continuing with IV antibiotic. Continuing with IV Zofran p.r.n.. Surgeon input appreciated. Waiting for HIDA scan in MRCP. So far ultrasound of right upper quadrant abdomen showed: No shadowing gallstones. Nonspecific gallbladder wall thickening and pericholecystic edema. Hepatic steatosis and hepatomegaly Plan discussed with: Patient My Orders Orders - POPEYE MCKEON MD Procedure Category Date Status Time Clear Liq Diet DIET 09/15/24 Transmitted Dinner Morphine Sulfate PHA 09/15/24 In Process Injection 16:15 Date of Service: Sep 16, 2024 Billing Provider: POPEYE MCKEON MD Common Visit Codes: [id number] INP/OBS CARE(HIGH) POPEYE MCKEON MD Sep 16, 2024 14:38
--- NOTE | 2024-09-16 17:02 | MEDREC ---
[facility] Intervention Section I [facility] Intervention: Duplication of therapy (BOTH ZOSYN AND FLAGYL CAN COVER FOR ANAEROBIC BACTERIA, WITH ZOSYN IS A BROAD SPECTRUM ANTIBIOTIC. PLEASE CONSIDER D/C FLAGYL) SARIKA SUÁREZ [facility] Sep 16, 2024 17:02
[2024-09-16] MEDS: LACTULOSE 20Gm/30ML SOLN PO PRN (17:40)
[2024-09-16] MEDS: ONDANSETRON HCL 4 MG/2 ML VIAL IV PRN (17:41)
[2024-09-17 01:00] VITALS: BP 152/86; PULSE 67; RESP 19; TEMP 98.4; O2SAT 95
[2024-09-17 05:00] VITALS: BP_SYST 108; BP_SYST 134; BP_DIAS 70; BP_DIAS 78; PULSE 61; PULSE 67; RESP 18; TEMP 97.4; TEMP 97.9; O2SAT 95; O2SAT 96
[2024-09-17 09:00] VITALS: BP 114/64; PULSE 65; RESP 17; TEMP 98.7; O2SAT 95
[2024-09-17 09:19] LABS: INR 1.08 (0.9-1.15); Partial Thromboplastin Time 29.6 SEC (24.5-34.5); Prothrombin Time 11.4 sec (9.3-11.8)
[2024-09-17 09:23] LABS: Alanine Aminotransferase 35 U/L (7-40); Albumin 4.1 g/dL (3.2-4.8); Alkaline Phosphatase 237 U/L (46-116); Anion Gap 7 (5-15); Aspartate Aminotransferase 35 U/L (13-40); BUN/Creatinine Ratio 8.8 (10.0-20.0); Bilirubin, Total 0.7 mg/dL (0.2-1.0); Blood Urea Nitrogen 12 mg/dL (9-23); Calcium 9.5 mg/dL (8.7-10.4); Carbon Dioxide 27 mmol/L (20-31); Chloride 106 mmol/L (98-107); Glucose 156 mg/dL (74-106); Lipase 82 U/L (12-53); Potassium 3.9 mmol/L (3.5-5.1); Sodium 140 mmol/L (136-145); Total Protein 6.4 g/dL (5.7-8.2)
--- NOTE | 2024-09-17 10:09 | DVHPN2 ---
Subjective The patient is seen and examined at bedside. Complain of abdominal pain. Reviewed: Care Plan, H&P, Labs, Medications, Previous Orders, Radiology Changes from previous H/P or p: No Changes Eyes: No Pain, No Vision change, No Conjunctivae inflammation, No Eyelid inflammation, No Other, No Redness ENT: No Ear pain, No Ear discharge, No Nose pain, No Nose discharge, No Nose congestion, No Mouth pain, No Mouth swelling, No Throat pain, No Throat swelling, No Other Respiratory: No Cough, No Dry, No Shortness of breath, No SOB with excertion, No Wheezing, No Hemoptysis, No Pleuritic Pain, No Sputum, No Other Gastrointestinal: No Nausea, No Vomiting; Abdominal Pain; No Diarrhea, No Constipation, No Melena, No Hematochezia, No Other Genitourinary: No Dysuria, No Frequency, No Incontinence, No Hematuria, No Retention, No Other Musculoskeletal: No other, No neck pain, No shoulder pain, No arm pain, No back pain, No hand pain, No leg pain, No foot pain Skin: No Rash, No Lesions, No Jaundice, No Bruising, No Other Objective Vitals Vital Signs Date Time Temp Pulse Resp B/P (MAP) Pulse Ox O2 Delivery O2 Flow Rate FiO2 09/17/24 05:29 67 18 108/70 09/17/24 05:00 97.4 95 97.4 09/16/24 20:00 Room Air* 0 21 Intake/Output Intake and Output 09/17/24 07:00 Intake Total 935 ml Balance 935 ml Intake Oral 460 ml IV Total 475 ml # Voids 7 General Appearance: Alert, Oriented X3, Cooperative, No acute distress HEENT: Atraumatic, PERRLA, EOMI, Mucous membr. moist/pink Neck: Supple Lungs: Clear to auscultation, Normal air movement Cardiovascular: Regular rate, Normal S1, Normal S2, No murmurs, Gallops, Rubs Abdomen: Normal bowel sounds, Soft, No tenderness Neuro: Cranial nerves 3-12 NL Psych/Mental Status: Mental status NL Medications Current Medications Medications Dose Ordered Sig/Adonay Route Start Time Stop Time Status Last Admin Dose Admin Metronidazole 100 ml @ 100 mls/hr Q8HR IV 09/14/24 22:00 09/17/24 05:40 100 MLS/HR Sodium Chloride 1,000 ml @ 75 mls/hr [id number] IV 09/14/24 16:00 09/16/24 22:46 75 MLS/HR Piperacillin Sod/ Tazobactam Sod 100 ml @ 25 mls/hr Q8HR IV 09/15/24 14:00 09/17/24 06:00 25 MLS/HR Morphine Sulfate 2 mg Q3HPRN PRN IV 09/15/24 16:15 09/17/24 04:54 2 MG Ondansetron HCl 4 mg PRN PRN IV 09/16/24 15:00 09/16/24 17:41 4 MG Lactulose 30 ml Q8HP PRN PO 09/16/24 15:00 09/16/24 17:40 30 ML Laboratory Results Laboratory Tests 09/14/24 18:00 09/17/24 08:50 Chemistry Test 09/17/24 08:50 Albumin 4.1 g/dL (3.2-4.8) Calcium Level 9.5 mg/dL (8.7-10.4) Total Protein 6.4 g/dL (5.7-8.2) Coagulation Test 09/17/24 08:50 Prothrombin Time 11.4 sec (9.3-11.8) Prothrombin Time INR 1.08 (0.9-1.15) Activated Partial Thromboplast Time 29.6 SEC (24.5-34.5) Lipid panel Test 09/17/24 08:50 Lipase 82 U/L (12-53) H LFT Test 09/17/24 08:50 Alanine Aminotransferase (ALT) 35 U/L (7-40) Alkaline Phosphatase 237 U/L (46-116) H Aspartate Amino Transferase (AST) 35 U/L (13-40) Total Bilirubin 0.7 mg/dL (0.2-1.0) Urinalysis Test 09/14/24 09:48 Urine Color Yellow (Yellow) Urine Clarity Clear (Clear) Urine pH 6.0 (5.0-9.0) Urine Specific [place] 1.018 (1.001-1.035) Urine Protein Negative (Negative) Urine Ketones Negative (Negative) Urine Blood Negative /uL (Negative) Urine Nitrite Negative (Negative) Urine Bilirubin Negative (Negative) Urine Urobilinogen Normal mg/dL (Negative) Urine Leukocyte Esterase Negative /uL (Negative) Urine RBC 2 /hpf (0 - 3) Urine WBC 1 /hpf (0 - 3) Urine Squamous Epithelial Cells None seen /hpf (<5) Urine Bacteria None seen /hpf (None Seen) Urine Glucose Normal mg/dL (Normal) Labs and/or images reviewed: Labs reviewed by me Assessment/Plan Assessment/Plan Abdominal pain Per CT scan abdomen and pelvis gallbladder wall thickening possible acute cholecystitis Common bile duct dilation per CT scan abdomen pelvis Continuing current management. Continuing with IV pain medication. Continuing with IV antibiotic. Continuing with IV Zofran p.r.n. Waiting for HIDA scan. So far ultrasound of right upper quadrant abdomen showed: No shadowing gallstones. Nonspecific gallbladder wall thickening and pericholecystic edema. Hepatic steatosis and hepatomegaly. MRCP show: Decreased pericholecystic fluid compared to prior CT. No filling defect in the CBD to suggest for choledocholithiasis. Mild irregular dilation of the extra-hepatic and common bile duct including part of the left intrahepatic bile duct could be seen with choledochal cyst. Waiting for surgeon input. Plan discussed with: Patient My Orders Orders - POPEYE MCKEON MD Procedure Category Date Status Time Ondansetron Hcl PHA 09/16/24 In Process (Zofran) 15:00 Lactulose Oral PHA 09/16/24 In Process 15:00 Date of Service: Sep 17, 2024 Billing Provider: POPEYE MCKEON MD Common Visit Codes: [id number] INP/OBS CARE(HIGH) POPEYE MCKEON MD Sep 17, 2024 10:09
[2024-09-17 13:00] VITALS: BP 121/73; PULSE 66; RESP 18; TEMP 98.1; O2SAT 96
[2024-09-17] MEDS: LORazepam 2MG/ML-1ML VIAL IV ONE (13:11)
--- NOTE | 2024-09-17 15:09 | DVH ---
MRI MRCP MRI HISTORY: CBD DILATION, R/O CHOLEDOCHOLITHIASIS COMPARISON: 09/14/24 PROCEDURE: Multiplanar multisequence MRI images were obtained of the abdomen without intravenous cont rast Additional MIPS were obtained of the biliary system. FINDINGS: Bile ducts: -Intrahepatic ducts: Mild dilation of the left. -Extrahepatic ducts: Mild dilation. -Common bile duct: Mild dilation. -Filling defects: No filling defects -Stricture: None. Gallbladder: No gallstones. Pericholecystic fluid appears decreased. Pancreas: Pancreatic duct: No ductal dilatation. Lesions: None. Liver: Signal intensity: Homogenous. Contour: Smooth. Size: Normal. Lesions: No focal liver lesion. ADDITIONAL FINDINGS: Lung base: Normal. Pancreas: Normal. Spleen:Normal. Bowel: Normal. Normal appendix. Adrenal glands:Normal. Kidneys and ureters:Bilateral kidney cysts with mild perinephric fat stranding. Lymph nodes:Normal. Peritoneum:Normal. Vessels: Normal. Abdominal wall: Normal. Bone: No aggressive bone lesions IMPRESSION: Decreased pericholecystic fluid compared to prior CT. No filling defect in the CBD to suggest for cho ledocholithiasis. Mild irregular dilation of the extra-hepatic and common bile duct including part of the left intrahep atic bile duct could be seen with choledochal cyst.
[2024-09-17 16:52] VITALS: BP 138/77; PULSE 77; RESP 19; TEMP 98.1; O2SAT 97
[2024-09-17 21:00] VITALS: BP 139/77; PULSE 80; RESP 19; TEMP 98.5; O2SAT 94
[2024-09-18] VITALS (7 sets, daily range): BP systolic 130–164; BP diastolic 71–86; PULSE 61–72; RESP 16–21; TEMP 97.5–98.4; O2SAT 95–98
[2024-09-18] MEDS: PIPERACILLIN-TAZOB 3.375GM 100 ML IV SCH (02:08)
--- NOTE | 2024-09-18 11:43 | DVHPN2 ---
Subjective The patient is seen and examined at bedside. Complain of abdominal pain. Reviewed: Care Plan, H&P, Labs, Medications, Previous Orders, Radiology Changes from previous H/P or p: No Changes Eyes: No Pain, No Vision change, No Conjunctivae inflammation, No Eyelid inflammation, No Other, No Redness ENT: No Ear pain, No Ear discharge, No Nose pain, No Nose discharge, No Nose congestion, No Mouth pain, No Mouth swelling, No Throat pain, No Throat swelling, No Other Respiratory: No Cough, No Dry, No Shortness of breath, No SOB with excertion, No Wheezing, No Hemoptysis, No Pleuritic Pain, No Sputum, No Other Gastrointestinal: No Nausea, No Vomiting; Abdominal Pain; No Diarrhea, No Constipation, No Melena, No Hematochezia, No Other Genitourinary: No Dysuria, No Frequency, No Incontinence, No Hematuria, No Retention, No Other Musculoskeletal: No other, No neck pain, No shoulder pain, No arm pain, No back pain, No hand pain, No leg pain, No foot pain Skin: No Rash, No Lesions, No Jaundice, No Bruising, No Other Objective Vitals Vital Signs Date Time Temp Pulse Resp B/P (MAP) Pulse Ox O2 Delivery O2 Flow Rate FiO2 09/18/24 09:00 97.9 64 16 130/82 (98) 96 97.9 09/17/24 20:00 Room Air* 0 21 Intake/Output Intake and Output 09/18/24 07:00 Intake Total 1920 ml Balance 1920 ml Intake Oral 1820 ml IV Total 100 ml # Voids 5 # Bowel Movements 1 General Appearance: Alert, Oriented X3, Cooperative, No acute distress HEENT: Atraumatic, PERRLA, EOMI, Mucous membr. moist/pink Neck: Supple Lungs: Clear to auscultation, Normal air movement Cardiovascular: Regular rate, Normal S1, Normal S2, No murmurs, Gallops, Rubs Abdomen: Normal bowel sounds, Soft, No tenderness Neuro: Cranial nerves 3-12 NL Psych/Mental Status: Mental status NL Medications Current Medications Medications Dose Ordered Sig/Adonay Route Start Time Stop Time Status Last Admin Dose Admin Metronidazole 100 ml @ 100 mls/hr Q8HR IV 09/14/24 22:00 09/18/24 06:05 100 MLS/HR Sodium Chloride 1,000 ml @ 75 mls/hr [id number] IV 09/14/24 16:00 09/18/24 00:00 75 MLS/HR Morphine Sulfate 2 mg Q3HPRN PRN IV 09/15/24 16:15 09/18/24 06:51 2 MG Ondansetron HCl 4 mg PRN PRN IV 09/16/24 15:00 09/16/24 17:41 4 MG Lactulose 30 ml Q8HP PRN PO 09/16/24 15:00 09/16/24 17:40 30 ML Piperacillin Sod/ Tazobactam Sod 100 ml @ 25 mls/hr Q8HR IV 09/18/24 02:00 09/18/24 06:00 25 MLS/HR Laboratory Results Laboratory Tests 09/14/24 18:00 09/17/24 08:50 Urinalysis Test 09/14/24 09:48 Urine Color Yellow (Yellow) Urine Clarity Clear (Clear) Urine pH 6.0 (5.0-9.0) Urine Specific [place] 1.018 (1.001-1.035) Urine Protein Negative (Negative) Urine Ketones Negative (Negative) Urine Blood Negative /uL (Negative) Urine Nitrite Negative (Negative) Urine Bilirubin Negative (Negative) Urine Urobilinogen Normal mg/dL (Negative) Urine Leukocyte Esterase Negative /uL (Negative) Urine RBC 2 /hpf (0 - 3) Urine WBC 1 /hpf (0 - 3) Urine Squamous Epithelial Cells None seen /hpf (<5) Urine Bacteria None seen /hpf (None Seen) Urine Glucose Normal mg/dL (Normal) Labs and/or images reviewed: Labs reviewed by me Assessment/Plan Assessment/Plan Abdominal pain Per CT scan abdomen and pelvis gallbladder wall thickening possible acute cholecystitis Common bile duct dilation per CT scan abdomen pelvis Continuing current management. Continuing with IV pain medication. Continuing with IV antibiotic. Continuing with IV Zofran p.r.n. Waiting for HIDA scan. So far ultrasound of right upper quadrant abdomen showed: No shadowing gallstones. Nonspecific gallbladder wall thickening and pericholecystic edema. Hepatic steatosis and hepatomegaly. MRCP show: Decreased pericholecystic fluid compared to prior CT. No filling defect in the CBD to suggest for choledocholithiasis. Mild irregular dilation of the extra-hepatic and common bile duct including part of the left intrahepatic bile duct could be seen with choledochal cyst. Waiting for surgeon input. Plan discussed with: Patient My Orders Orders - POPEYE MCKEON MD Procedure Category Date Status Time Mrcp Mri MRI 09/17/24 Resulted 13:28 Piperacillin-Tazob PHA 09/18/24 In Process 3.375gm (Zosyn 3.375g 02:00 Date of Service: Sep 18, 2024 Billing Provider: POPEYE MCKEON MD Common Visit Codes: [id number] INP/OBS CARE(HIGH) POPEYE MCKEON MD Sep 18, 2024 11:43
--- NOTE | 2024-09-18 14:31 | DVH ---
Procedure: NM NM HIDA SCAN Exam Date: 09/18/2024 12:47 PM Clinical History: r/o cholecystitis Comparison Study: Ultrasound on 09/14/2024. MRCP done 09/17/2024 Nuclear Medicine Hepatobiliary Scan. Technique: Following the intravenous administration of 6 mCi of technetium 99m labeled Choletec multiple planar abdominal planar images were obtained in anterior projection in 5 minute intervals for45 minutes . Ri ght lateral images were obtained at 45 minutes after injection. Findings: The liver appears grossly normal in size. There is no abnormal persistence of the cardiac or blood po ol activity. There is prompt visualization of the gallbladder and excretion of activity into the smal l bowel. Impression: 1. Unremarkable hepatobiliary study without evidence of acute cholecystitis.
--- NOTE | 2024-09-18 16:08 | DVH ---
EXAM: US Duplex Left Lower Extremity Veins CLINICAL INDICATION: RULE OUT DVT, SWOLLEN LEFT FOOT TECHNIQUE: Real-time duplex ultrasound scan of the left lower extremity veins integrating B-mode two -dimensional vascular structure, Doppler spectral analysis, color flow Doppler imaging and compressio n. COMPARISON: US BILAT LOWER DVT on DOS: 04/27/24 FINDINGS: DEEP VEINS: Unremarkable. No DVT in the visualized common femoral, femoral, proximal deep femoral o r popliteal veins. The veins demonstrate normal color flow, are normally compressible, with normal p hasic flow and/or augmentation response. SUPERFICIAL VEINS: Unremarkable. No thrombus in the visualized great saphenous vein. SOFT TISSUES: No acute findings. No popliteal cyst. LYMPH NODES: Prominent right groin lymph node measuring up to 1.9 cm. OTHER FINDINGS: . . IMPRESSION: No DVT. HS:Y
[2024-09-18] MEDS: KETOROLAC TROMETH 30 MG/ML 1ML VIAL IV ONE (21:46)
[2024-09-19 04:53] VITALS: BP 133/81; PULSE 55; RESP 16; TEMP 97.6; O2SAT 98
[2024-09-19 09:00] VITALS: BP 168/87; PULSE 52; RESP 16; TEMP 97.6; O2SAT 99
--- NOTE | 2024-09-19 11:05 | DVHDS2 ---
Discharge Summary Date of Admission Sep 14, 2024 at 15:52 Date of Discharge: Sep 19, 2024 Admitting Diagnosis Abdominal pain Per CT scan abdomen and pelvis gallbladder wall thickening possible acute cholecystitis Common bile duct dilation per CT scan abdomen pelvis Labs/Diagnostic Data: Laboratory Results Test 09/17/24 08:50 09/14/24 18:00 09/14/24 09:48 09/14/24 09:30 Prothrombin Time 11.4 sec (9.3-11.8) Prothrombin Time INR 1.08 (0.9-1.15) Activated Partial Thromboplast Time 29.6 SEC (24.5-34.5) Sodium Level 140 mmol/L (136-145) Potassium Level 3.9 mmol/L (3.5-5.1) Chloride Level 106 mmol/L (98-107) Carbon Dioxide Level 27 mmol/L (20-31) Anion Gap 7 (5-15) Blood Urea Nitrogen 12 mg/dL (9-23) Creatinine 1.37 mg/dL (0.700-1.30) Glomerular Filtration Rate Calc 58 mL/min (>90) BUN/Creatinine Ratio 8.8 (10.0-20.0) Serum Glucose 156 mg/dL (74-106) Calcium Level 9.5 mg/dL (8.7-10.4) Total Bilirubin 0.7 mg/dL (0.2-1.0) Aspartate Amino Transferase (AST) 35 U/L (13-40) Alanine Aminotransferase (ALT) 35 U/L (7-40) Alkaline Phosphatase 237 U/L (46-116) Total Protein 6.4 g/dL (5.7-8.2) Albumin 4.1 g/dL (3.2-4.8) Lipase 82 U/L (12-53) White Blood Count 10.4 10^3/uL (4.4-10.8) Red Blood Count 5.67 10^6/uL (4.5-5.90) Hemoglobin 17.6 g/dL (13.5-17.5) Hematocrit 51.0 % (41.0-53.0) Mean Corpuscular Volume 89.9 fL (80.0-100.0) Mean Corpuscular Hemoglobin 31.0 pg (28.0-32.0) Mean Corpuscular Hemoglobin Concent 34.4 g/dL (32.0-36.0) Red Cell Distribution Width 13.4 % (11.8-14.3) Platelet Count 248 10^3/uL (140-450) Mean Platelet Volume 7.6 fL (6.9-10.8) Neutrophils (%) (Auto) 73.3 % (37.0-80.0) Lymphocytes (%) (Auto) 17.1 % (10.0-50.0) Monocytes (%) (Auto) 6.7 % (0.0-12.0) Eosinophils (%) (Auto) 2.1 % (0.0-7.0) Basophils (%) (Auto) 0.8 % (0.0-2.0) Neutrophils # (Auto) 7.6 10 ^3/uL (1.6-8.6) Lymphocytes # (Auto) 1.8 10 ^3/uL (0.4-5.4) Monocytes # (Auto) 0.7 10 ^3/uL (0-1.3) Eosinophils # (Auto) 0.2 10 ^3/uL (0-0.8) Basophils # (Auto) 0.1 10 ^3/uL (0-0.2) Nucleated Red Blood Cells 0.0 % Urine Color Yellow (Yellow) Urine Clarity Clear (Clear) Urine pH 6.0 (5.0-9.0) Urine Specific [place] 1.018 (1.001-1.035) Urine Protein Negative (Negative) Urine Ketones Negative (Negative) Urine Blood Negative /uL (Negative) Urine Nitrite Negative (Negative) Urine Bilirubin Negative (Negative) Urine Urobilinogen Normal mg/dL (Negative) Urine Leukocyte Esterase Negative /uL (Negative) Urine RBC 2 /hpf (0 - 3) Urine WBC 1 /hpf (0 - 3) Urine Squamous Epithelial Cells None seen /hpf (<5) Urine Bacteria None seen /hpf (None Seen) Urine Glucose Normal mg/dL (Normal) Direct Bilirubin 0.8 mg/dL (<0.3) Troponin I High Sensitivity 7 ng/L (</=54) Other Laboratory Tests 09/17/24 08:50 09/14/24 18:00 Brief Hx & Hospital Course: This is 63 years old male came to emergency department with chief complaint of severe abdominal pain. The patient apparently had a right upper quadrant abdominal pain that woke him up from sleep. The patient was admitted. Workup was done. Ultrasound of the gallbladder showed: No shadowing gallstones. Nonspecific gallbladder wall thickening and pericholecystic edema. Hepatic steatosis and hepatomegaly. Echogenic bilateral kidneys suggestive of chronic medical renal disease. No hydronephrosis. The CT scan abdomen pelvis showed: Gallbladder wall thickening. Recommend correlation for possible acute cholecystitis. Further evaluation with right upper quadrant ultrasound may be useful. Dilated CBD measuring up to 1.0 cm. Bilateral renal cysts. Grade 1 anterolisthesis of L4 on L5 with degenerative and postsurgical changes of the visualized spine. MRCP showed: Decreased pericholecystic fluid compared to prior CT. No filling defect in the CBD to suggest for choledocholithiasis. Mild irregular dilation of the extra-hepatic and common bile duct including part of the left intrahepatic bile duct could be seen with choledochal cyst. Dr. Morse, the surgeon saw the patient the patient and the patient still remained in lots of pain so he recommend a HIDA scan. HIDA scan showed : Unremarkable hepatobiliary study without evidence of acute cholecystitis. We still waiting for the surgeon for input of a HIDA scan and his abdominal pain that proportion he may need surgery because of biliary colic however the patient said he needs to leave because his friend is dying and he wanted to see his friend. The patient verbally understand that without surgeon evaluation on the pain he might have to come back for further workup or surgery. Patient is still leave against medical advice. Physical exam: This exam was done prior patient's INR against medical advice HEENT: Normocephalic atraumatic pupils equal react to light and accommodation. Extraocular muscles intact, conjunctiva pink, oropharynx moist, no thrush, no exudate. Lymphatic: No lymphadenopathy Cardiovascular exam: S1, S2 was heard. No murmurs, rubs, gallops Lung: Clear on auscultation bilaterally, no wheeze, rale, rhonchi. GI: Abdominal soft, nondistended, nontenderness, positive bowel sounds. Extremity: No crepitus, cyanosis, edema. Pedal pulses present bilateral. Full range of motion. Skin: Normal turgor, no rash. Psych: Alert, oriented x3. Neurology: No focal deficits, cranial nerve II to XII grossly intact. Condition at Discharge: Guarded Final Diagnosis/Problems List Abdominal pain Biliary colic Per CT scan abdomen and pelvis gallbladder wall thickening possible acute cholecystitis Common bile duct dilation per CT scan abdomen pelvis Discharge Disposition: AMA Discharge Statement: "Patient was advised to return to the ER or call 911 if any headaches, dizziness, shortness of breath, chest pain, abdominal pain, bleeding, fevers, or worsening of medical condition. Patient was counseled about treatment plan, medications, possible side effects, patientverbalized understanding. All questions were answered to the best of my ability. This discharge took greater then 30 minutes in planning, reviewing documentation, counseling the patient, and discussing with other team members." ASSESSMENT ASSESSMENT Assessment Date of Service: Sep 19, 2024 Billing Provider: POPEYE MCKEON MD Common Visit Codes: 99000-OEC/OBS DISCH DAY >30min POPEYE MCKEON MD Sep 19, 2024 11:05
== END 2024-09-19 09:00 | disposition left against medical advice (07) ==
LOC: ER 09:07 → EDBD 09:07 → OVERFLOW 15:52 → WEST WING 18:38
PROVIDERS: ADMIT Hospitalist; ATTEND Internal Medicine
DX: K81.0 Acute cholecystitis (principal); K76.0 Fatty (change of) liver, not elsewhere classified; F17.210 Nicotine dependence, cigarettes, uncomplicated; I10 Essential (primary) hypertension; K83.8 Other specified diseases of biliary tract; J44.9 Chronic obstructive pulmonary disease, unspecified; Z53.29 Procedure and treatment not carried out because of patient's decision for other reasons; Z82.49 Family history of ischemic heart disease and other diseases of the circulatory system
CPT/HCPCS: 36415; 74177; 74181; 76700; 78226; 80048; 80053; 80076; 81001; 83690; 84484; 85025; 85610; 85730; 93971; 99291; G0378; J1885; J2405; J2470; J2543; J3490

== ENCOUNTER 2024-11-03 13:28 | Emergency (ER) | payer MEDICAID ==
[~2024-11-03] VITALS: Ht 172.7 cm; Wt 79.6 kg
[~2024-11-03 13:28] MED LIST changes: +LACT10SO3 PO
--- NOTE | 2024-11-03 14:41 | ED.PDOC ---
Back pain HPI HPI Comments 63 year old male presents to the ED with chief complaint of back pain. Patient reports that he has been experiencing right lower back pain with radiation to his right leg since yesterday. Patient relays that his pain is sharp and a 9/10. Patient states he has not done any recent heavy lifting and has been relaxing most of the time. Patient denies any numbness, weakness, dysuria, abdominal pain, fever, chills, chest pain, or SOB. Chief Complaint: Back Pain Time Seen by MD: 14:36 Primary Care Provider: NONE Reviewed Notes: Nurses Notes, Medications, Allergies Allergies: Coded Allergies: NO KNOWN ALLERGIES (Unverified , 12/20/10) Home Meds Active Scripts Prednisone (Prednisone) 20 Mg Tab, 40 MG PO DAILY for 2 Days, #4 MG Prov:RICH GRAJEDA RESIDENT 06/01/24 Azithromycin (Zithromax Z-Kieran) 250 Mg Tab, 250 MG PO DAILY for 4 Days, #4 TAB Prov:RICH GRAJEDA RESIDENT 06/01/24 Fluticasone Propionate (Inhala (Armonair Digihaler) 55 Mcg/Act Aer, 55 MCG IN BID for 30 Days, #1 AER Prov:NII RUFFIN MD 04/29/24 Albuterol Sulfate (Albuterol Sulfate Hfa) 108 Mcg/Act Aer, 108 MCG IN Q4H PRN for 30 Days, #2 AER Prov:NII RUFFIN MD 04/29/24 Reported Medications Lactulose (Lactulose) 10 Gm/15 Ml Ila, 10 GM PO, ML 09/14/24 Valsartan-Hydrochlorothiazide (Diovan Hct) 160 /12.5 Tab, 1 TAB PO DAILY, #30 TAB 5 Refills 04/28/24 Furosemide (Furosemide) 20 Mg Tab, 20 MG PO DAILY for 30 Days, MG 04/28/24 Aspirin (Aspirin Low Dose) 81 Mg Chw, 81 MG PO DAILY@BREAKFAST, TAB.CHEW 06/02/23 Famotidine (Acid Controller Maximum S) 20 Mg Tab, 20 MG PO DAILY, TAB 06/02/23 Atorvastatin Calcium (ATORVASTATIN CALCIUM) 20 Mg Tab, 1 TAB PO DAILY 12/05/22 Losartan Potassium (Losartan Potassium) 50 Mg Tab, 1-2 TAB PO DAILY 12/05/22 Oxycodone W/ Acetaminophen (Endocet) 1 Tab Tab, 10-325 MG PO Q8HP 12/05/22 Information Source: Patient Mode of Arrival: Ambulatory Timing: Days Duration: Since onset Location of Back pain: (R) Lumbar Radiates to: Posterior: (R) Thigh Severity: Moderate Prehospital treatment: None Quality: Cramping Onset: Spontaneous History of: None Modifying Factors: Movement, Twisting Past Medical History PAST MEDICAL HISTORY: Cancer, COPD, High Lipids, HTN Surgical History (Other): Spinal hardware surgery Family History Family History: Reviewed,noncontributory to illness Social History Smoker: Cigarettes, Greater Than 1 Pack/Day Alcohol: Occasionally Drugs: Denies Drug Use Lives In: Home Constitutional: denies: chills, diaphoresis, fatigue, fever, malaise, sweats, weakness, others EENTM: denies: blurred vision, double vision, ear bleeding, ear discharge, ear drainage, ear pain, ear ringing, eye pain, eye redness, hearing loss, mouth pain, mouth swelling, nasal discharge, nose bleeding, nose congestion, nose pain, photophobia, tearing, throat pain, throat swelling, voice changes, others Respiratory: denies: cough, hemoptysis, orthopnea, SOB at rest, shortness of breath, SOB with excertion, stridor, wheezing, others Cardiovascular: denies: chest pain, dizzy spells, diaphoresis, Dyspnea on exertion, edema, irregular heart beat, left arm pain, lightheadedness, palpitat ions, PND, syncope, others Gastrointestinal: denies: abdomen distended, abdominal pain, blood streaked bow els, constipated, diarrhea, dysphagia, difficulty swallowing, hematemesis, melena, nausea, poor appetite, poor fluid intake, rectal bleeding, rectal pain, vomiting, others Genitourinary: denies: burning, dysuria, flank pain, frequency, hematuria, incontinence, penile discharge, penile sore, pain, testicle pain, testicle swelling, urgency, others Neurological: denies: dizziness, fainting, headache, left sided numbness, left sided weakness, numbness, paresthesia, pre-existing deficit, right sided numbness, right sided weakness, seizure, speech problems, tingling, tremors, weakness, others Musculoskeletal: reports: back pain (Right lower back); denies: gout, joint pain, joint swelling, muscle pain, muscle stiffness, neck pain, others Integumetry: denies: bruises, change in color, change in hair/nails, dryness, laceration, lesions, lumps, rash, wounds, others Allergic/Immunocompromised: denies: Difficulty Healing, Frequent Infections, Hives, Itching, others Hematologic/Lymphatic: denies: anemia, blood clots, easy bleeding, easy bruising, swollen glands, others Endocrine: denies: excessive hunger, excessive sweating, excessive thirst, excessive urination, flushing, intolerance to cold, intolerance to heat, unexplained weight gain, unexplained weight loss, others Psychiatric: denies: anxiety, bipolar disorder, depression, hopeless, panic disorder, schizophrenia, sleepless, suicidal, others All Other Systems: Reviewed and Negative Physical Exam General Appearance: Mild Distress, Normal HEENT: Normal ENT Inspection, PERRL/EOMI Neck: Full Range of Motion, Non-Tender, Normal, Normal Inspection Respiratory: Chest Non-Tender, Lungs Clear, No Accessory Muscle Use, No Respiratory Distress, Normal Breath Sounds Cardiovascular: No Edema, No JVD, No Murmur, No Gallop, Normal Peripheral Pulses, Regular Rate/Rhythm Breast Exam: Deferred Gastrointestinal: No Organomegaly, Non Tender, No Pulsatile Mass, Normal Bowel Sounds, Soft Genitalia: Deferred Pelvic: Deferred Rectal: Deferred Extremities: No calf tenderness, Normal capillary refill, Normal inspection, Normal range of motion, Non-tender, No pedal edema Musculoskeletal : Location: Right Apperance: Tenderness (Tenderness to right ichial tuberosity, positive right leg test) Neurologic: Alert, 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 Was a procedure done?: No Back Pain Differential Dx Differential Diagnosis: Fracture, Musculoskeletal Pain, Pyelonephritis X-Ray, Labs, Meds, VS Vital Signs Date Time Temp Pulse Resp B/P (MAP) Pulse Ox O2 Delivery O2 Flow Rate FiO2 11/03/24 16:03 98.6 11/03/24 15:19 98.9 77 17 125/87 (100) 99 98.9 11/03/24 15:19 77 17 99 Room Air 11/03/24 15:03 98.7 11/03/24 14:52 98.4 81 16 136/79 (98) 100 98.4 11/03/24 13:30 98.9 94 18 129/96 (107) 99 Lab Test 11/03/24 15:04 11/03/24 14:56 Range/Units Urine Color Light-yellow Yellow Urine Clarity Clear Clear Urine pH 5.5 5.0-9.0 Urine Specific [place] 1.012 1.001-1.035 Urine Protein Negative Negative Urine Ketones Negative Negative Urine Blood Negative Negative /uL Urine Nitrite Negative Negative Urine Bilirubin Negative Negative Urine Urobilinogen Normal Negative mg/dL Urine Leukocyte Esterase Negative Negative /uL Urine RBC 1 0 - 3 /hpf Urine WBC 1 0 - 3 /hpf Urine Squamous Epithelial Cells None seen <5 /hpf Urine Bacteria None seen None Seen /hpf Urine Hyaline Casts Few 0 - 2 /lpf Urine Glucose Normal Normal mg/dL White Blood Count 10.5 4.4-10.8 10^3/uL Red Blood Count 5.66 4.5-5.90 10^6/uL Hemoglobin 17.3 13.5-17.5 g/dL Hematocrit 49.8 41.0-53.0 % Mean Corpuscular Volume 88.1 80.0-100.0 fL Mean Corpuscular Hemoglobin 30.6 28.0-32.0 pg Mean Corpuscular Hemoglobin Concent 34.8 32.0-36.0 g/dL Red Cell Distribution Width 13.8 11.8-14.3 % Platelet Count 253 140-450 10^3/uL Mean Platelet Volume 7.7 6.9-10.8 fL Neutrophils (%) (Auto) 63.9 37.0-80.0 % Lymphocytes (%) (Auto) 24.1 10.0-50.0 % Monocytes (%) (Auto) 7.3 0.0-12.0 % Eosinophils (%) (Auto) 3.7 0.0-7.0 % Basophils (%) (Auto) 1.0 0.0-2.0 % Neutrophils # (Auto) 6.7 1.6-8.6 10 ^3/uL Lymphocytes # (Auto) 2.5 0.4-5.4 10 ^3/uL Monocytes # (Auto) 0.8 0-1.3 10 ^3/uL Eosinophils # (Auto) 0.4 0-0.8 10 ^3/uL Basophils # (Auto) 0.1 0-0.2 10 ^3/uL Nucleated Red Blood Cells 0.3 % Sodium Level 140 136-145 mmol/L Potassium Level 5.2 H 3.5-5.1 mmol/L Chloride Level 104 98-107 mmol/L Carbon Dioxide Level 30 20-31 mmol/L Anion Gap 6 5-15 Blood Urea Nitrogen 21 9-23 mg/dL Creatinine 1.76 H 0.700-1.30 mg/dL Glomerular Filtration Rate Calc 43 >90 mL/min BUN/Creatinine Ratio 11.9 10.0-20.0 Serum Glucose 101 74-106 mg/dL Calcium Level 10.7 H 8.7-10.4 mg/dL Current Medications Medications (Trade) Dose Ordered Sig/Adonay Route Start Time Stop Time Status Last Admin Ibuprofen (Motrin Tablet) 800 mg ONCE ONCE PO 11/03/24 14:45 11/03/24 14:49 DC 11/03/24 15:03 Acetaminophen/ Hydrocodone Bitart (Lamoure 7.5/325MG Tab) 1 tab ONCE ONCE PO 11/03/24 15:00 11/03/24 15:01 DC 11/03/24 15:03 Time of 1ST Reevaluation: 15:36 Reevaluation 1ST: Improved Patient Education/Counseling: Diagnosis, Treatment Family Education/Counseling: No Family Present Departure 1 Departure Time of Disposition: 17:04 Impression: Primary Impression: Lumbar sprain Additional Impressions: Musculoskeletal pain Sciatica CKD (chronic kidney disease) Disposition: 01 HOME / SELF CARE / HOMELESS Condition: Stable Additional Instructions: Thank you for visiting our Emergency Room. I wish you full and complete recovery. Please follow the following instructions: 1. Take your medication bottles with you to EVERY DOCTOR'S VISIT (including your primary doctor). 2. Please follow up with your primary doctor in 2-3 days or sooner if symptoms do not improve. 3. Please read all the papers given to you at the time of the discharge so that you understand your condition better. 4. Please note that the emergency room visits are focused and not necessarily comprehensive. Therefore, it is possible that some occult medical conditions may go undiagnosed in the ER. 5. The emergency room visits are not and should not be thought of as replacement for regular visits with your primary doctor. 6. Therefore, it is absolutely critical that you follows up with your primary doctor on regular basis to make sure you receives a complete and comprehensive care. 7. I recommended the you take the hospital discharge papers to your primary care physician and other doctors' offices with you. 8. Go to your nearest emergency room if you think your condition gets worse or you think your condition is an emergency. Avoid class of medication called nonsteroidal anti-inflammatory drugs such as Motrin ibuprofen etc.. Take only Tylenol for pain control. Discharged With: Self Critical Care Note Critical Care Time?: No Stability Stability form required: No Heart Score Heart Score: Heart Score Response (Comments) Value History N/A 0 EKG N/A 0 Age N/A 0 Risk Factors N/A 0 Troponin N/A 0 Total 0 I personally scribed for MISSY WILKS MD ([email or web address]) on 11/03/24 at 14:41. Electronically submitted by Rachid Bradley ([email or web address]). MISSY WILKS MD Nov 03, 2024 14:41
[2024-11-03] MEDS ORDERED: HYDROcodone-ACET 5/325MG TAB PO ONE (14:45)
[2024-11-03] MEDS: HYDROcodone-ACET 7.5/325MG TAB PO ONE (15:03)
[2024-11-03] MEDS: IBUPROFEN 800 MG TAB PO ONE (15:03)
--- NOTE | 2024-11-03 15:20 | DVH ---
CT ABDOMEN AND PELVIS WITHOUT CONTRAST CLINICAL HISTORY: Acute R sided post pelvic bone fx. h/o bladder CA TECHNIQUE: Multiple contiguous axial images of the abdomen and pelvis without intravenous contrast. The images were reformatted degenerate coronal and sagittal reconstructions. All CT scans at this medical facility are performed using dose modulation techniques as appropriate t o a performed exam including the following:Automated exposure control was utilized; adjustment of the MA and/or KV according to patient size; and use of iterative reconstruction technique. Radiation Dose Information: CT Dose: CTDI volume is 11 mGy. Dose-length product is 579 mGy*cm Comparison: CT CT AB PEL WO CON-NO ORAL OR IV on DOS: 05/30/24 FINDINGS: Evaluation of the abdomen and pelvis is limited without intravenous contrast. There is a stable exophytic cyst in the upper pole of the left kidney. There is no evidence of nephr olithiasis or hydronephrosis. The gallbladder is contracted without evidence of gallstones. The live r, pancreas, adrenal glands, and spleen appear within normal limits. There is no gross evidence of abdominal lymphadenopathy. There is no free fluid or free air. The stomach grossly appears unremarkable. The small and large bowel loops demonstrate normal caliber . The abdominal aorta and IVC appear within normal limits. The bladder appears unremarkable for the degree of distention. Pelvic organ appears within normal gonzales its. There is no gross evidence of a pelvic mass. There is no free fluid collection. Lung bases are clear. There is no acute osseous abnormality. There is partial visualization of posterior fusion hardware in the lower thoracic spine. IMPRESSION: 1. There is no acute process in the abdomen and pelvis. HS:Y
[2024-11-03 15:21] LABS: Basophils # (auto) 0.1 10 ^3/uL (0-0.2); Eosinophils # (auto) 0.4 10 ^3/uL (0-0.8); Eosinophils % (auto) 3.7 % (0.0-7.0); Hematocrit 49.8 % (41.0-53.0); Hemoglobin 17.3 g/dL (13.5-17.5); Lymphocytes # (auto) 2.5 10 ^3/uL (0.4-5.4); Lymphocytes % (auto) 24.1 % (10.0-50.0); Mean Corpuscular Hemoglobin 30.6 pg (28.0-32.0); Mean Corpuscular Hgb Conc. 34.8 g/dL (32.0-36.0); Mean Corpuscular Volume 88.1 fL (80.0-100.0); Monocytes # (auto) 0.8 10 ^3/uL (0-1.3); Monocytes % (auto) 7.3 % (0.0-12.0); Neutrophils # (auto) 6.7 10 ^3/uL (1.6-8.6); Neutrophils % (auto) 63.9 % (37.0-80.0); Nucleated Red Blood Cells % 0.3 %; Platelet Count (auto) 253 10^3/uL (140-450); Red Blood Cells 5.66 10^6/uL (4.5-5.90); Red Cell Distribution Width 13.8 % (11.8-14.3); White Blood Cell 10.5 10^3/uL (4.4-10.8)
[2024-11-03 15:37] LABS: Chloride 104 mmol/L (98-107); Sodium 140 mmol/L (136-145)
[2024-11-03 15:38] LABS: Anion Gap 6 (5-15); Carbon Dioxide 30 mmol/L (20-31)
[2024-11-03 15:39] LABS: Urine Bacteria None Seen /hpf (None Seen)
[2024-11-03 15:43] LABS: BUN/Creatinine Ratio 11.9 (10.0-20.0); Blood Urea Nitrogen 21 mg/dL (9-23); Glucose 101 mg/dL (74-106)
[2024-11-03 15:46] LABS: Calcium 10.7 mg/dL (8.7-10.4); Potassium 5.2 mmol/L (3.5-5.1)
[2024-11-03 15:55] LABS: Urine Blood Negative /uL (Negative); Urine Clarity Clear (Clear); Urine Color Light-Yellow (Yellow); Urine Hyaline Cast FEW /lpf (0 - 2); Urine Protein, UAD Negative (Negative); Urine Specific Gravity 1.012 (1.001-1.035); Urine Squamous Epithelial Cell None Seen /hpf (<5); Urine Urobilinogen Normal (Negative); Urine WBC 1 /hpf (0 - 3); Urine pH 5.5 (5.0-9.0)
[2024-11-03 17:31] VITALS: BP 109/80; PULSE 80; RESP 17; TEMP 98.4; O2SAT 94
== END 2024-11-03 17:33 | disposition home or self-care (01) ==
LOC: ER 13:28
DX: S33.5XXA Sprain of ligaments of lumbar spine, initial encounter (principal); M54.41 Lumbago with sciatica, right side; N18.9 Chronic kidney disease, unspecified; I12.9 Hypertensive chronic kidney disease with stage 1 through stage 4 chronic kidney disease, or unspecified chronic kidney disease; J44.9 Chronic obstructive pulmonary disease, unspecified; E78.5 Hyperlipidemia, unspecified; F17.210 Nicotine dependence, cigarettes, uncomplicated; Z85.51 Personal history of malignant neoplasm of bladder; Z98.890 Other specified postprocedural states; Z79.52 Long term (current) use of systemic steroids; Z79.82 Long term (current) use of aspirin; Z79.899 Other long term (current) drug therapy; X58.XXXA Exposure to other specified factors, initial encounter; Y93.89 Activity, other specified; Y92.89 Other specified places as the place of occurrence of the external cause; Y99.8 Other external cause status
CPT/HCPCS: 36415; 74176; 80048; 81001; 85025